=== PATIENT | female | born 1985 | race Caucasian/White ===

== ENCOUNTER 2016-11-30 10:40 | Emergency (ER) | payer BC ==
[~2016-11-30 10:40] MED LIST: CLIN300C86 PO; HYDR-971 PO; MULT1TAB52 PO; ONDA4TAB12 PO; PANT40TA3 PO; SERT100T PO; SUCR1TAB29 PO; VALA1000 PO
--- NOTE | 2016-11-30 12:03 | ED.ADGEN ---
Past History Past Medical History: Other Past Surgical History: No Surgical History Smoking: Cigarettes, Less than 1pk/day Alcohol Use: Occasionally Drug Use: None Adult General Chief Complaint Chief Complaint nausea, vomiting, diarrhea HPI HPI Patient is a 30 year old female who presents with nausea, vomiting, diarrhea. Started at 6am, chills, no known fevers. Reports diffuse abdominal pain. Pt has had similar complaints in the past. Pt has be instructed to avoid MJ as thought to induce her symptoms. She admits she did smoke it again, not today. 2 prior abdominal surgeries for obstruction. ++ diarrhea and flatus today. She attempted Reglan at home. Review of Systems Review of Systems Constitutional: per hpi Eyes: Denies change in visual acuity, redness, or eye pain [] HENT: Denies nasal congestion or sore throat [] Respiratory: Denies cough or shortness of breath [] Cardiovascular: denies cp GI: Dper hpi : Denies dysuria or hematuria [] Musculoskeletal: Denies back pain or joint pain [] Integument: Denies rash or skin lesions [] Neurologic: Denies headache, focal weakness or sensory changes [] Current Medications Current Medications Current Medications Medications (Trade) Dose Ordered Sig/Jaycee Start Time Stop Time Status Last Admin Dose Admin Capsaicin (Zostrix) 1 ace 1X ONCE 11/30/16 12:30 11/30/16 12:31 DC 11/30/16 12:10 1 ACE Haloperidol Lactate (Haldol) 5 mg 1X ONCE 11/30/16 12:30 11/30/16 12:31 DC 11/30/16 12:10 5 MG Ketorolac Tromethamine (Toradol) 30 mg 1X ONCE 11/30/16 13:30 11/30/16 13:31 DC 11/30/16 13:57 30 MG Ondansetron HCl (Zofran) 4 mg 1X ONCE 11/30/16 12:10 11/30/16 12:11 DC 11/30/16 12:10 4 MG Sodium Chloride (Iv Sodium Chloride 0.9% 1,000ml) 1,000 ml @ 1,000 mls/hr 1X ONCE 11/30/16 12:10 11/30/16 13:09 DC 11/30/16 12:10 1,000 MLS/HR Allergies Allergies Allergies Coded Allergies Type Severity Reaction Last Updated Verified tea tree Allergy Severe Rash 07/17/16 Yes ethinyl estradiol Adverse Reaction Intermediate Swelling 03/26/14 Yes etonogestrel Adverse Reaction Intermediate Swelling 03/26/14 Yes Physical Exam Physical Exam Constitutional: Well developed, well nourished, dry heaving into bucket HENT: Normocephalic, atraumatic, bilateral external ears normal, oropharynx slightly dry, no oral exudates, nose normal. [] Eyes: PERRLA, EOMI, conjunctiva normal, no discharge. [] Neck: Normal range of motion, no tenderness, supple, no stridor. [] Cardiovascular:Heart rateregualr with regular rhythm, no murmur [] Lungs & Thorax: Bilateral breath sounds clear to auscultation no wheeze or crackles Abdomen: Bowel sounds normal, soft, non distended, diffuse non-focal ttp, no guarding or peritoneal signs Skin: Warm, dry, no erythema, no rash. [] Back: No tenderness, no CVA tenderness. [] Extremities: No tenderness, no cyanosis, no clubbing, ROM intact, no edema. [] Neurologic: Alert and oriented X 3, normal motor function, normal sensory function, no focal deficits noted. [] Current Patient Data Vital Signs Vital Signs Date Time Temp Pulse Resp B/P Pulse Ox O2 Delivery O2 Flow Rate FiO2 11/30/16 11:30 97.4 52 16 100 Room Air Lab Results Laboratory Tests Test 11/30/16 11:59 11/30/16 12:55 11/30/16 13:39 11/30/16 13:40 POC Hemoglobin 15.0gm/dL POC Hematocrit 44% POC Sodium 141mmol/L (135-145) POC Potassium 5.6mmol/L (3.5-5.0) H POC Chloride 109mmol/L (98-110) POC Total CO2 23mmol/L (23-32) Anion Gap 16mmol/L (6-14) H 9 (6-14) POC Blood Urea Nitrogen 12mg/dL (8-26) POC Creatinine 0.5mg/dL (0.5-1.4) Glucose Level 149mg/dL (60-99) H 137mg/dL (70-99) H POC Ionized Calcium (Elizabeth) 1.10mmol/L (1.13-1.32) L White Blood Count 11.9x10^3/uL (4.0-11.0) H Red Blood Count 4.45x10^6/uL (3.50-5.40) Hemoglobin 14.3g/dL (12.0-15.5) Hematocrit 42.5% (36.0-47.0) Mean Corpuscular Volume 96fL (79-100) Mean Corpuscular Hemoglobin 32pg (25-35) Mean Corpuscular Hemoglobin Concent 34g/dL (31-37) Red Cell Distribution Width 13.9% (11.5-14.5) Platelet Count 195x10^3/uL (140-400) Neutrophils (%) (Auto) 89% (31-73) H Lymphocytes (%) (Auto) 8% (24-48) L Monocytes (%) (Auto) 3% (0-9) Eosinophils (%) (Auto) 0% (0-3) Basophils (%) (Auto) 0% (0-3) Neutrophils # (Auto) 10.6x10^3uL (1.8-7.7) H Lymphocytes # (Auto) 1.0x10^3/uL (1.0-4.8) Monocytes # (Auto) 0.3x10^3/uL (0.0-1.1) Eosinophils # (Auto) 0.0x10^3/uL (0.0-0.7) Basophils # (Auto) 0.0x10^3/uL (0.0-0.2) Sodium Level 142mmol/L (136-145) Potassium Level 3.7mmol/L (3.5-5.1) Chloride Level 108mmol/L (98-107) H Carbon Dioxide Level 25mmol/L (21-32) Blood Urea Nitrogen 9mg/dL (7-20) Creatinine 0.8mg/dL (0.6-1.0) Estimated GFR (Cockcroft-Gault) 83.7 Calcium Level 8.5mg/dL (8.5-10.1) POC Urine HCG, Qualitative hcg negative (Negative) Urine Collection Type Void Urine Color Yellow Urine Clarity Clear Urine pH 7.0 Urine Specific Rowe 1.025 Urine Protein Neg (NEG-TRACE) Urine Glucose (UA) Negmg/dL (NEG) Urine Ketones (Stick) Negmg/dL (NEG) Urine Blood Small (NEG) Urine Nitrite Neg (NEG) Urine Bilirubin Neg (NEG) Urine Urobilinogen Dipstick 0.2mg/dL (0.2 mg/dL) Urine Leukocyte Esterase Neg (NEG) EKG EKG [] Radiology/Procedures Radiology/Procedures [] Course & Med Decision Making Course & Med Decision Making Pertinent Labs and Imaging studies reviewed. (See chart for details) POC bmp ordered. UA, ucg. Pt given IV fluids, zofran, haldol and capsaicin cream for abdomen. UCG negative, pt given IV toradol. No active vomiting in ED. Pt did not feel much better, but no clear indication to keep in hospital as no vomiting. Tolerate some fluids in the ED. DC'd with zofran odt RX, explained to avoid MJ. Final Impression Final Impression cyclic vomiting - possible marijuana induced Problems: Dragon Disclaimer Dragon Disclaimer This electronic medical record was generated, in whole or in part, using a voice recognition dictation system. YULY HERMOSILLO MD Nov 30, 2016 12:03
[2016-11-30] MEDS ORDERED: ONDANSETRON PF 4 MG/2 ML VIAL. IV ONE (12:10)
[2016-11-30] MEDS ORDERED: IV NORMAL SALINE 1,000ML 1,000 ML IV ONE (12:10)
[2016-11-30 12:16] LABS: POTASSIUM ISTAT 5.6 mmol/L (3.5-5.0)
[2016-11-30] MEDS ORDERED: CAPSAICIN 0.025% TOPICAL CREAM 60GM TUBE. TP ONE (12:30)
[2016-11-30] MEDS ORDERED: HALOPERIDOL LACT 5 MG/ML VIAL. IVP ONE (12:30)
[2016-11-30 13:14] LABS: BASO % 0 % (0-3); EOS % 0 % (0-3); HEMATOCRIT 42.5 % (36.0-47.0); HEMOGLOBIN 14.3 g/dL (12.0-15.5); LYMPH % 8 % (24-48); MEAN CORPUSCULAR HEMOGLOBIN 32 pg (25-35); MEAN CORPUSCULAR HGB CONC 34 g/dL (31-37); MEAN CORPUSCULAR VOLUME 96 fL (79-100); MONO # 0.3 x10^3/uL (0.0-1.1); MONO % 3 % (0-9); NEUT # 10.6 x10^3uL (1.8-7.7); NEUT % 89 % (31-73); PLATELET COUNT 195 x10^3/uL (140-400); RED BLOOD COUNT 4.45 x10^6/uL (3.50-5.40); RED CELL DISTRIBUTION WIDTH 13.9 % (11.5-14.5); WHITE BLOOD COUNT 11.9 x10^3/uL (4.0-11.0)
[2016-11-30 13:20] LABS: CALCIUM 8.5 mg/dL (8.5-10.1); CREATININE 0.8 mg/dL (0.6-1.0); GFR 83.7; POTASSIUM 3.7 mmol/L (3.5-5.1)
[2016-11-30] MEDS ORDERED: KETOROLAC 30 MG/ML VIAL. IV ONE (13:30)
[2016-11-30 13:45] VITALS: BP 168/82
[2016-11-30 13:58] LABS: BILIRUBIN,URINE NEG (NEG); CLARITY,URINE CLEAR; COLOR,URINE YELLOW; GLUCOSE,URINE NEG (NEG)
[2016-11-30] MEDS ORDERED: ONDA4TAB10 SL (13:58)
[2016-11-30 13:59] LABS: NITRITE,URINE NEG (NEG); UROBILINOGEN,URINE 0.2 mg/dL (0.2 mg/dL)
== END 2016-11-30 14:10 | disposition home or self-care (01) ==
LOC: ER 10:40
DX: G43.A0 Cyclical vomiting, in migraine, not intractable (principal); R19.7 Diarrhea, unspecified; R10.84 Generalized abdominal pain; F17.210 Nicotine dependence, cigarettes, uncomplicated; Z88.8 Allergy status to other drugs, medicaments and biological substances
CPT/HCPCS: 36415; 80047; 80048; 81003; 81025; 85027; 96361; 96374; 96375; 99284; J1630; J1885; J2405; J7030

== ENCOUNTER 2017-12-08 04:38 | Inpatient (IN) | payer SELFPAY ==
[~2017-12-08] VITALS: Ht 157.5 cm; Wt 82.7 kg
[~2017-12-08 04:38] MED LIST changes: +CLIN300C8 PO; -CLIN300C86 PO; +ONDA4TAB10 SL; -SUCR1TAB29 PO; +SUCR1TAB35 PO
[2017-12-08] MEDS ORDERED: LORazepam 2 MG/ML VIAL IV ONE (05:45)
[2017-12-08] MEDS ORDERED: ONDANSETRON PF 4 MG/2 ML VIAL. IV ONE (05:45)
[2017-12-08] MEDS ORDERED: KETOROLAC 30 MG/ML VIAL. IV ONE ×2 (05:45→08:00)
--- NOTE | 2017-12-08 05:47 | PHYS DOC ---
Past History Past Medical History: No Pertinent History Past Surgical History: Appendectomy, Other Smoking: Cigarettes, Less than 1pk/day Alcohol Use: None Drug Use: None Adult General Chief Complaint Chief Complaint: NAUSEA/VOMITING/DIARRHEA HPI HPI 32-year-old female with a history of cyclic vomiting syndrome last episode about a year ago. She now presents the emergency department complaining of symptoms of nausea and intractable vomiting over the last several days. These are similar to symptoms she's had before Denies fevers chills sweats or shaking chills. Patient has had normal bowel bladder habits with no diarrhea. Does have some crampy abdominal pain. She also has a history of anxiety but states she does not take anxiety medicines. Patient denies marijuana use. Review of Systems Review of Systems Constitutional: Denies fever or chills [] Eyes: Denies change in visual acuity, redness, or eye pain [] HENT: Denies nasal congestion or sore throat [] Respiratory: Denies cough or shortness of breath [] Cardiovascular: No additional information not addressed in HPI [] GI: Denies abdominal pain, nausea, vomiting, bloody stools or diarrhea [] : Denies dysuria or hematuria [] Musculoskeletal: Denies back pain or joint pain [] Integument: Denies rash or skin lesions [] Neurologic: Denies headache, focal weakness or sensory changes [] Endocrine: Denies polyuria or polydipsia [] All other systems were reviewed and found to be within normal limits, except as documented in this note. Current Medications Current Medications Current Medications Medications (Trade) Dose Ordered Sig/Jaycee Start Time Stop Time Status Last Admin Dose Admin Ondansetron HCl (Zofran) 4 mg 1X ONCE 12/08/17 05:00 12/08/17 05:01 UNV Sodium Chloride 1,000 ml @ 1,000 mls/hr Q1H 12/08/17 05:00 UNV Allergies Allergies Allergies Coded Allergies Type Severity Reaction Last Updated Verified tea tree Allergy Severe Rash 07/17/16 Yes ethinyl estradiol Adverse Reaction Intermediate Swelling 03/26/14 Yes etonogestrel Adverse Reaction Intermediate Swelling 03/26/14 Yes Physical Exam Physical Exam Anxious appearing 32-year-old female in no acute distress. Mucous membranes mildly dry. No tachycardia. Mild diffuse upper abdominal tenderness without guarding or rebound. No mass or megaly. Normal bowel sounds. No skin changes. No CVA tenderness. Nontender right upper quadrant and McBurney's point. No suprapubic tenderness Constitutional: Well developed, well nourished, no acute distress, non-toxic appearance. [] HENT: Normocephalic, atraumatic, bilateral external ears normal, oropharynx moist, no oral exudates, nose normal. [] Eyes: PERRLA, EOMI, conjunctiva normal, no discharge. [] Neck: Normal range of motion, no tenderness, supple, no stridor. [] Cardiovascular:Heart rate regular rhythm, no murmur [] Lungs & Thorax: Bilateral breath sounds clear to auscultation [] Abdomen: Bowel sounds normal, soft, no masses, no pulsatile masses. Exam as above [] Skin: Warm, dry, no erythema, no rash. [] Back: No tenderness, no CVA tenderness. [] Extremities: No tenderness, no cyanosis, no clubbing, ROM intact, no edema. [] Neurologic: Alert and oriented X 3, normal motor function, normal sensory function, no focal deficits noted. [] Psychologic: Affect anxious judgement normal Current Patient Data Vital Signs Vital Signs Date Time Temp Pulse Resp B/P (MAP) Pulse Ox O2 Delivery O2 Flow Rate FiO2 12/08/17 04:53 98.2 62 20 96 Room Air EKG EKG [] Radiology/Procedures Radiology/Procedures [] Course & Med Decision Making Course & Med Decision Making Pertinent Labs and Imaging studies reviewed. (See chart for details) Signs and symptoms consistent with suspected episode of cyclic vomiting syndrome in a patient with a prior history thereof. She has a clearly contributory anxiety component. diffuse upper abdominal pain and tenderness. Full workup pending including labs and CT. Zofran IV fluids and Ativan administered. Care assumed by Dr. Keita at 6 AM to follow laboratory and radiographic results/correlate with clinical reevaluation for disposition. [] Dragon Disclaimer Dragon Disclaimer This electronic medical record was generated, in whole or in part, using a voice recognition dictation system. Departure Departure: Impression: Primary Impression: Cyclic vomiting syndrome Additional Impressions: Anxiety Abdominal pain Referrals: PCP,NO (PCP) Problem Qualifiers ARIANA VILLALOBOS MD December 08, 2017 05:47
[2017-12-08] MEDS: IV NORMAL SALINE 1,000ML 1,000 ML IV SCH ×6 (05:48→09:45)
[2017-12-08] MEDS ORDERED: CONTRAST GIVEN MC PRN (06:00)
[2017-12-08] MEDS ORDERED: IOHEXOL 300 MG/ML 75 ML VIAL. IV ONE (06:00)
[2017-12-08 06:08] LABS: BASO # 0.1 x10^3/uL (0.0-0.2); BASO % 0 % (0-3); EOS % 0 % (0-3); HEMATOCRIT 46.5 % (36.0-47.0); HEMOGLOBIN 16.2 g/dL (12.0-15.5); LYMPH % 11 % (24-48); MEAN CORPUSCULAR HEMOGLOBIN 32 pg (25-35); MEAN CORPUSCULAR HGB CONC 35 g/dL (31-37); MEAN CORPUSCULAR VOLUME 92 fL (79-100); MONO % 5 % (0-9); NEUT # 15.9 x10^3uL (1.8-7.7); NEUT % 84 % (31-73); PLATELET COUNT 227 x10^3/uL (140-400); RED BLOOD COUNT 5.05 x10^6/uL (3.50-5.40); RED CELL DISTRIBUTION WIDTH 13.1 % (11.5-14.5)
[2017-12-08 06:21] LABS: ALBUMIN 4.2 g/dL (3.4-5.0); ALBUMIN/GLOBULIN RATIO 1.2 (1.0-1.7); CALCIUM 9.3 mg/dL (8.5-10.1); CREATININE 0.8 mg/dL (0.6-1.0); GFR 82.6; TOTAL BILIRUBIN 0.5 mg/dL (0.2-1.0); TOTAL PROTEIN 7.8 g/dL (6.4-8.2)
[2017-12-08 06:23] LABS: POTASSIUM 2.8 mmol/L (3.5-5.1)
--- NOTE | 2017-12-08 06:41 | PHYS DOC ---
Past History Past Medical History: No Pertinent History Past Surgical History: Appendectomy, Other Smoking: Cigarettes, Less than 1pk/day Alcohol Use: None Drug Use: None Adult General Chief Complaint Chief Complaint: NAUSEA/VOMITING/DIARRHEA HPI HPI 32-year-old female patient complaining of very frequent episodes of vomiting for the last 4 days with some episodes of coffee ground material for the last couple days. Patient states she had the same episode one year ago. Patient was seen by Dr. Diaz and her care transferred to [place] at [address] Diaz note for more history of present illness. Review of Systems Review of Systems Please see Dr. Diaz note for review of systems Current Medications Current Medications Current Medications Medications (Trade) Dose Ordered Sig/Jaycee Start Time Stop Time Status Last Admin Dose Admin Info (Do NOT chart on this entry -- for MONITORING) 1 each PRN DAILY PRN 12/08/17 06:00 12/10/17 05:59 Iohexol (Omnipaque 300 Mg/ml) 75 ml 1X ONCE 12/08/17 06:00 12/08/17 06:01 DC Ketorolac Tromethamine (Toradol) 30 mg 1X ONCE 12/08/17 05:45 12/08/17 05:47 DC 12/08/17 05:50 30 MG Lorazepam (Ativan) 1 mg 1X ONCE 12/08/17 05:45 12/08/17 05:47 DC 12/08/17 05:49 1 MG Ondansetron HCl (Zofran) 4 mg 1X ONCE 12/08/17 05:45 12/08/17 05:47 DC 12/08/17 05:49 4 MG Sodium Chloride 1,000 ml @ 1,000 mls/hr Q1H 12/08/17 05:45 12/08/17 05:48 1,000 MLS/HR Allergies Allergies Allergies Coded Allergies Type Severity Reaction Last Updated Verified tea tree Allergy Severe Rash 07/17/16 Yes ethinyl estradiol Adverse Reaction Intermediate Swelling 03/26/14 Yes etonogestrel Adverse Reaction Intermediate Swelling 03/26/14 Yes Physical Exam Physical Exam Constitutional: Well developed, well nourished, mild distress, non-toxic appearance, I saw patient after treatment with IV fluid and Zofran and Ativan and patient states she feeling better. [] HENT: Normocephalic, atraumatic, oropharynx moist, no oral exudates Eyes: PERRLA, EOMI, conjunctiva normal, no discharge. [] Neck: Normal range of motion, no tenderness, supple, no stridor. [] Cardiovascular:Heart rate regular rhythm, no murmur [] Lungs & Thorax: Bilateral breath sounds clear to auscultation [] Abdomen: Bowel sounds normal, soft, no tenderness, no masses, no pulsatile masses. [] Skin: Warm, dry, no erythema, no rash. [] Back: No tenderness, no CVA tenderness. [] Extremities: No tenderness, no cyanosis, no clubbing, ROM intact, no edema. [] Neurologic: Alert and oriented X 3, normal motor function, normal sensory function, no focal deficits noted. [] Psychologic: Affect normal, judgement normal, mood normal. [] Current Patient Data Vital Signs Vital Signs Date Time Temp Pulse Resp B/P (MAP) Pulse Ox O2 Delivery O2 Flow Rate FiO2 12/08/17 04:53 98.2 62 20 96 Room Air Lab Results Laboratory Tests Test 12/08/17 05:35 White Blood Count 19.0 x10^3/uL (4.0-11.0) H Red Blood Count 5.05 x10^6/uL (3.50-5.40) Hemoglobin 16.2 g/dL (12.0-15.5) H Hematocrit 46.5 % (36.0-47.0) Mean Corpuscular Volume 92 fL (79-100) Mean Corpuscular Hemoglobin 32 pg (25-35) Mean Corpuscular Hemoglobin Concent 35 g/dL (31-37) Red Cell Distribution Width 13.1 % (11.5-14.5) Platelet Count 227 x10^3/uL (140-400) Neutrophils (%) (Auto) 84 % (31-73) H Lymphocytes (%) (Auto) 11 % (24-48) L Monocytes (%) (Auto) 5 % (0-9) Eosinophils (%) (Auto) 0 % (0-3) Basophils (%) (Auto) 0 % (0-3) Neutrophils # (Auto) 15.9 x10^3uL (1.8-7.7) H Lymphocytes # (Auto) 2.0 x10^3/uL (1.0-4.8) Monocytes # (Auto) 1.0 x10^3/uL (0.0-1.1) Eosinophils # (Auto) 0.0 x10^3/uL (0.0-0.7) Basophils # (Auto) 0.1 x10^3/uL (0.0-0.2) Platelet Estimate Pending Sodium Level 139 mmol/L (136-145) Potassium Level 2.8 mmol/L (3.5-5.1) *L Chloride Level 97 mmol/L (98-107) L Carbon Dioxide Level 33 mmol/L (21-32) H Anion Gap 9 (6-14) Blood Urea Nitrogen 13 mg/dL (7-20) Creatinine 0.8 mg/dL (0.6-1.0) Estimated GFR (Cockcroft-Gault) 82.6 BUN/Creatinine Ratio 16 (6-20) Glucose Level 117 mg/dL (70-99) H Calcium Level 9.3 mg/dL (8.5-10.1) Total Bilirubin 0.5 mg/dL (0.2-1.0) Aspartate Amino Transferase (AST) 21 U/L (15-37) Alanine Aminotransferase (ALT) 31 U/L (14-59) Alkaline Phosphatase 91 U/L (46-116) Total Protein 7.8 g/dL (6.4-8.2) Albumin 4.2 g/dL (3.4-5.0) Albumin/Globulin Ratio 1.2 (1.0-1.7) Lipase 78 U/L (73-393) EKG EKG [] Radiology/Procedures Radiology/Procedures [] [address] [address] IMAGING REPORT Signed PATIENT: JESSE HULL ACCOUNT: [id number] : 1985 LOCATION: ER AGE: 32 SEX: F EXAM STATUS: REG ER ORD. PHYSICIAN: ARIANA DIAZ MD REASON: pain PROCEDURE: CT ABD PELV W/ IV CONTRST ONLY Exam performed: CT scan of the abdomen and pelvis with contrast Clinical Indication: Umbilical pain with nausea and vomiting and diarrhea Date of Service: 12/08/2017 comparison: None available Technique: Contiguous helical acquisitions are obtained from the lung bases to the pelvis during intravenous administration of [75 mL of Omnipaque 300]. Sagittal and coronal reformatted images were obtained and reviewed. CT abdomen findings: The lung bases appear essentially clear. The visualized heart is normal The liver, spleen ,gall bladder and pancreas appears unremarkable. Both adrenal glands and bilateral kidneys appear normal with symmetric excretion of contrast via both kidneys. The small bowel loops appear nondilated and unremarkable. Aorta is normal in caliber. There is no retroperitoneal lymphadenopathy or mass lesions. No bowel related inflammatory stranding is noted. Appendix is not clearly seen. No obvious stranding is seen in the pericecal region. Occasional subcentimeter mesenteric lymph nodes are identified predominantly in the right lower quadrant. The urinary bladder is decompressed. The uterus is anteverted. No adnexal masses seen. Interrogation of bone windows demonstrates no obvious bony abnormality. Sagittal and coronal reformatted images were obtained and reviewed which demonstrate no additional findings. Impression abdomen and pelvis : 1. No acute intra-abdominal or pelvic process is detected. 2. Appendix is not clearly seen. No secondary sign of acute appendicitis noted PQRS Compliance Statement: One or more of the following individualized dose reduction techniques were utilized for this examination: 1. Automated exposure control 2. Adjustment of the mA and/or kV according to patient size 3. Use of iterative reconstruction technique Electronically signed by: Izzy Lawrence MD (12/08/2017 7:28 AM) [facility] [place] DICTATED AND SIGNED BY: IZZY LAWRENCE MD DATE: 12/08/17 0720 CC: WAQAS JC MD; ARIANA DIAZ MD; PCP,NO ~ Course & Med Decision Making Course & Med Decision Making Pertinent Labs and Imaging studies reviewed. (See chart for details) Patient care transferred to [place] at [address] Diaz. Patient presented to ER with multiple episodes of nausea and vomiting and treated with IV fluid and Zofran and at the time I saw her she felt better. Patient had leukocytosis with unremarkable CT abdomen and pelvis. Patient currently is on her period and urine showed blood. Potassium of 2.8 and IV potassium was ordered. Patient had coffee-ground material vomiting with positive gastrocolic and Protonix was given. Dr. Brooks informed at 0635 and agreed with plan of admission. Dragon Disclaimer Dragon Disclaimer This electronic medical record was generated, in whole or in part, using a voice recognition dictation system. Departure Departure: Impression: Primary Impression: Cyclic vomiting syndrome Additional Impressions: Hypokalemia Anxiety Leukocytosis Abdominal pain Upper GI bleed Disposition: ADMITTED INPATIENT (At 0640) Admitting Physician: David Brooks Condition: IMPROVED Referrals: PCP,NO (PCP) Problem Qualifiers WAQAS JC MD December 08, 2017 06:41
[2017-12-08] MEDS ORDERED: PANTOPRAZOLE IV 40 MG VIAL. IVP ONE (06:45)
[2017-12-08] MEDS ORDERED: POTASSIUM CL 40MEQ IN 0.9%NACL 1,000 ML IV ONE (06:45)
[2017-12-08 06:48] LABS: U PREG PATIENT NEGATIVE (NEG)
[2017-12-08 06:54] LABS: GASTRIC OB PAT POSITIVE (NEG)
[2017-12-08 07:06] LABS: BACTERIA,URINE MOD /HPF (0-FEW); BILIRUBIN,URINE NEG (NEG); CLARITY,URINE TURBID; COLOR,URINE AMBER; GLUCOSE,URINE NEG (NEG); NITRITE,URINE NEG (NEG); RBC,URINE >40 /HPF (0-2); SQUAMOUS EPITHELIAL CELL,UR MANY /LPF; UROBILINOGEN,URINE 2 mg/dL (0.2 mg/dL)
[2017-12-08 07:20] LABS: % BANDS 1 % (0-9); % BASOS 1 % (0-3); % EOS 0 % (0-5); % LYMPHS 14 % (24-48); % MONOS 6 % (0-10); % SEGS 78 % (35-66); PLT ESTIMATE ADEQUATE (ADEQUATE)
[2017-12-08 07:21] LABS: TOXIC VACUOLATION PRESENT
--- NOTE | 2017-12-08 07:33 | RAD ---
Exam performed: CT scan of the abdomen and pelvis with contrast Clinical Indication: Umbilical pain with nausea and vomiting and diarrhea Date of Service: 12/08/2017 comparison: None available Technique: Contiguous helical acquisitions are obtained from the lung bases to the pelvis during intravenous administration of [75 mL of Omnipaque 300]. Sagittal and coronal reformatted images were obtained and reviewed. CT abdomen findings: The lung bases appear essentially clear. The visualized heart is normal The liver, spleen ,gall bladder and pancreas appears unremarkable. Both adrenal glands and bilateral kidneys appear normal with symmetric excretion of contrast via both kidneys. The small bowel loops appear nondilated and unremarkable. Aorta is normal in caliber. There is no retroperitoneal lymphadenopathy or mass lesions. No bowel related inflammatory stranding is noted. Appendix is not clearly seen. No obvious stranding is seen in the pericecal region. Occasional subcentimeter mesenteric lymph nodes are identified predominantly in the right lower quadrant. The urinary bladder is decompressed. The uterus is anteverted. No adnexal masses seen. Interrogation of bone windows demonstrates no obvious bony abnormality. Sagittal and coronal reformatted images were obtained and reviewed which demonstrate no additional findings. Impression abdomen and pelvis : 1. No acute intra-abdominal or pelvic process is detected. 2. Appendix is not clearly seen. No secondary sign of acute appendicitis noted PQRS Compliance Statement: One or more of the following individualized dose reduction techniques were utilized for this examination: 1. Automated exposure control 2. Adjustment of the mA and/or kV according to patient size 3. Use of iterative reconstruction technique Electronically signed by: Izzy Lawrence MD (12/08/2017 7:28 AM) [facility]
[2017-12-08] MEDS: ONDANSETRON PF 4 MG/2 ML VIAL. IV PRN ×3 (07:42→20:35)
[2017-12-08] MEDS ORDERED: MORPHINE SULFATE 4 MG/ML DISP.SYRIN. IV ONE (08:00)
[2017-12-08 09:40] VITALS: BP 109/68
[2017-12-08] MEDS ORDERED: PROMETHAZINE 12.5 MG in IV NORMAL SALINE 50ML 50 ML IV PRN (10:00)
[2017-12-08 10:15] LABS: BARBITURATES NEG (NEG); BENZODIAZEPINES NEG (NEG); CANNABINOIDS POS (NEG); COCAINE NEG (NEG); METHADONE NEG (NEG); OPIATES NEG (NEG); PHENCYCLIDINE NEG (NEG)
[2017-12-08 10:17] LABS: AMPHETAMINE/METHAMPHETAMINE NEG (NEG)
[2017-12-08] MEDS: MORPHINE SULFATE 4 MG/ML DISP.SYRIN. IV PRN ×3 (10:36→20:36)
[2017-12-08] MEDS ORDERED: PROM12.553 RC (11:49)
[2017-12-08] MEDS ORDERED: ONDA8TAB15 PO (11:49)
[2017-12-08] MEDS ORDERED: MULT-55 PO (11:49)
[2017-12-08] MEDS ORDERED: FAMO-63 PO (11:49)
[2017-12-08] MEDS ORDERED: SUCR1TAB35 PO (11:49)
[2017-12-08 14:47] LABS: CALCIUM 8.1 mg/dL (8.5-10.1); CREATININE 0.9 mg/dL (0.6-1.0); GFR 72.1
[2017-12-08 15:00] VITALS: BP 112/72
[2017-12-08] MEDS: POTASSIUM CL 40MEQ IN 0.9%NACL 1,000 ML IV SCH (17:34)
--- NOTE | 2017-12-08 18:18 | HP ---
ADMIT DATE: 12/08/2017 HISTORY OF PRESENT ILLNESS: The patient is a 32-year-old female patient who presented to the Emergency Room with a complaint of recurrent bouts of nausea and vomiting, started last Tuesday. She also complained with a complaint of 1 episode of diarrhea and marked sweating and severe epigastric pain. She apparently was admitted last year with similar presentation, attributed at that time to marijuana abuse. She was investigated extensively in the Emergency Room, was found to have marked leukocytosis and severe hypokalemia. Her potassium was only 2.8 and her white cell count was high at 19,000. Her hemoglobin and hematocrit were extremely high; however, her CT scan of the abdomen and pelvis showed no acute intra-abdominal or pelvic process detected. The appendix is not clearly seen. No secondary signs of acute appendicitis, but the patient herself said that she has had appendectomy. She was started on IV fluids with the form of normal saline at 40 mEq of potassium chloride and pain medication and antiemetic was admitted for close observation and further management. PAST MEDICAL HISTORY: Significant for gastroesophageal reflux disease, anxiety, depression and bronchial asthma. PAST SURGICAL HISTORY: Significant for a cyst removal from her intestine. She also had another exploratory laparotomy with adhesiolysis in 2010. She has had esophagogastroduodenoscopy and appendectomy in 2005. ALLERGIES: SHE APPARENTLY IS ALLERGIC TO NUVARING WELL TEA TREE OIL. MEDICATIONS: She is not normally on Prilosec. She has also promethazine and Zofran as needed. FAMILY HISTORY: She has 1 older brother and one younger sister, both are healthy. Her sister lives with her; however, her father at the age of 45 because of congestive heart failure. Mother at the age of 40 because she committed suicide. SOCIAL HISTORY: She is , has one 9-year-old daughter. She smokes occasionally and drinks alcohol occasionally as well as marijuana occasionally. She is currently unemployed. She is actually currently working. REVIEW OF SYSTEMS: As per history of present illness. PHYSICAL EXAMINATION: GENERAL: On arrival to the Emergency Room, the patient looked well and was clearly in no apparent respiratory distress, no pallor, jaundice, cyanosis, or thyromegaly. No jugular venous distension. No limb edema. VITAL SIGNS: Her heart rate was 62, blood pressure was 112/62, temperature was 98.2, respiratory rate was 20, and oxygen saturation was 96% on room air. HEENT: Showed normocephalic, atraumatic. NECK: Supple. HEART: Showed normal first and second heart sounds with no gallop, rub or murmur. CHEST: Clear to auscultation. No crepitation or rhonchi. ABDOMEN: Slightly distended, soft with tenderness, mostly in the epigastric area. There is no guarding or rigidity. No organomegaly. All hernial orifices intact. Bowel sounds normal. NEUROLOGIC: She is awake, alert, responding appropriately. Cranial nerves intact. EXTREMITIES: She moves extremities without difficulty. LABORATORY DATA: While in the Emergency Room, she had lab work done, which showed a white cell count of 19,000, hemoglobin 16.2, hematocrit 46.5, MCV 92, and platelet count 227,000. Her serum sodium was 139, potassium 2.8, chloride 97, bicarbonate 33, anion gap of 9, BUN 13, creatinine 0.8, estimated GFR was 182 mL per minute. Her glucose 117, calcium was 9.3. Total bilirubin, AST, ALT, alkaline phosphatase were normal. Total protein was 7.8, albumin 4.1 and lipase was 78. Her urinalysis showed the urine was alvaro, turbid with a pH of 7.5, specific gravity 1.020. There is moderate amount of protein, negative for glucose, trace amount of ketones, large amount of blood, negative for nitrite and leukocyte esterase. There were more than 40 rbc's, 1-4 wbc's, moderate amount of bacteria. Her urine test was negative. Toxic screen was positive for cannabinoids, negative for opiates, methadone, barbiturates, phencyclidine, amphetamine, methamphetamine, benzodiazepine, cocaine and alcohol. She has had a CT scan of the abdomen and pelvis, which showed the liver, spleen, gallbladder and pancreas appear unremarkable. Both adrenal glands and bilateral kidneys appear normal with ____ of contrast via both kidneys, the small bowel loops appear nondilated and unremarkable. The aorta is normal in caliber. There is no retroperitoneal lymphadenopathy or mass lesion. No bowel related inflammatory stranding is noted. Appendix not clearly seen. No obvious stranding seen in the pericalyceal region, occasionally subcentimeter mesenteric lymph nodes are identified, predominantly in the right lower quadrant. The urinary bladder is decompressed and the uterus is anteverted. No adnexal masses seen. Interrogation of bone windows demonstrate no obvious bony abnormalities. Sagittal and coronal reformatted images were obtained and reviewed, which demonstrates no additional finding. ASSESSMENT AND PLAN: In summary, there is no acute intra-abdominal or pelvic process identified. Appendix not clearly seen. However, the patient herself stated that her appendix was removed. So in summary, this is a 32-year-old female patient again came in with intractable nausea and vomiting and basically marked dehydration, hyponatremia, hypokalemia. We will continue with IV fluid, pain medication, we will replenish potassium and use antiemetics and repeat her labs as needed. JULIETA LOZANO MD DR: YULISSA/etta JOB#: [id number] / [id number]
[2017-12-08 19:51] VITALS: BP 119/74
[2017-12-08 23:09] VITALS: BP 104/59
[2017-12-09] MEDS: POTASSIUM CL 40MEQ IN 0.9%NACL 1,000 ML IV SCH ×3 (01:16→20:37)
[2017-12-09] MEDS: MORPHINE SULFATE 4 MG/ML DISP.SYRIN. IV PRN ×4 (03:37→22:12)
[2017-12-09] MEDS: ONDANSETRON PF 4 MG/2 ML VIAL. IV PRN ×4 (03:37→22:12)
[2017-12-09 05:54] VITALS: BP 106/61
[2017-12-09 06:44] LABS: BASO % 0 % (0-3); EOS # 0.1 x10^3/uL (0.0-0.7); EOS % 1 % (0-3); HEMATOCRIT 36.1 % (36.0-47.0); HEMOGLOBIN 12.6 g/dL (12.0-15.5); LYMPH # 3.7 x10^3/uL (1.0-4.8); LYMPH % 44 % (24-48); MEAN CORPUSCULAR HEMOGLOBIN 32 pg (25-35); MEAN CORPUSCULAR HGB CONC 35 g/dL (31-37); MEAN CORPUSCULAR VOLUME 92 fL (79-100); MONO # 0.7 x10^3/uL (0.0-1.1); MONO % 8 % (0-9); NEUT # 3.9 x10^3uL (1.8-7.7); NEUT % 47 % (31-73); PLATELET COUNT 156 x10^3/uL (140-400); RED BLOOD COUNT 3.91 x10^6/uL (3.50-5.40); RED CELL DISTRIBUTION WIDTH 13.5 % (11.5-14.5); WHITE BLOOD COUNT 8.4 x10^3/uL (4.0-11.0)
[2017-12-09 06:57] LABS: ALBUMIN 2.8 g/dL (3.4-5.0); CALCIUM 7.3 mg/dL (8.5-10.1); CREATININE 0.7 mg/dL (0.6-1.0); GFR 96.4; MAGNESIUM 2.1 mg/dL (1.8-2.4); POTASSIUM 3.8 mmol/L (3.5-5.1); TOTAL BILIRUBIN 0.4 mg/dL (0.2-1.0); TOTAL PROTEIN 5.7 g/dL (6.4-8.2)
[2017-12-09] MEDS ORDERED: PNEUMOC CONJ VACC 23-VALENT 0.5 ML VIAL. VAX IM ONE (09:00)
[2017-12-09 10:50] VITALS: BP 121/78
[2017-12-09 14:44] VITALS: BP 130/83
[2017-12-09 19:54] VITALS: BP 129/83
[2017-12-09 23:00] VITALS: BP 106/65
[2017-12-10] MEDS: POTASSIUM CL 40MEQ IN 0.9%NACL 1,000 ML IV SCH ×2 (00:15→05:05)
--- NOTE | 2017-12-10 04:15 | PN ---
DATE: 12/09/2017 SUBJECTIVE: The patient is resting, slightly propped up in bed, no apparent distress. She is feeling generally slightly better. She has managed to tolerate some jello, has been up and about to have the shower, and does not feel as dizzy as yesterday. CLINICAL EXAMINATION: GENERAL: When I examined her this afternoon, she looked well and was clearly in no apparent respiratory distress, pale, but no jaundice, cyanosis, or thyromegaly. No jugular venous distention. No limb edema. VITAL SIGNS: Her heart rate was 59, blood pressure was 130/83, temperature was 98.2, respiratory rate 20, and oxygen saturation was 98%. Rest of clinical examination is unremarkable, has not really changed. Her intake was 3265. No output was recorded. LABORATORY WORK: As of this morning showed her white cell count was down to 8400, hemoglobin down to 12.6, hematocrit was 36, MCV 92, and platelet count 256,000. Her chemistry showed a serum sodium 140, potassium 3.8, chloride 108, bicarbonate 27, anion gap of 5, BUN 8, creatinine 0.7, estimated GFR was 96 mL per minute, her glucose was 89, calcium was 7.3, magnesium was 2.1. Total bilirubin, AST, ALT, alkaline phosphatase were normal. Total protein 5.7, albumin was 2.8. Her urinalysis was essentially unremarkable. Her urine toxic screen was positive for cannabinoids. ASSESSMENT: 1. Intractable nausea and vomiting. 2. Dehydration. 3. Hyponatremia. 4. Hypokalemia, all have resolved. Her serum sodium is 140, potassium is 3.8. PLAN: My plan is to continue with IV fluid in the form of normal saline and potassium. Continue with pain medication and Zofran. We will advance her diet to full liquid. Repeat her labs tomorrow and hopefully discharge her home tomorrow if she is able to tolerate her food and has no further episodes of nausea and vomiting. JULIETA LOZANO MD DR: YULISSA/etta JOB#: [id number] / [id number]
[2017-12-10 05:45] VITALS: BP 126/61
[2017-12-10 09:59] LABS: CALCIUM 8.5 mg/dL (8.5-10.1); CREATININE 0.7 mg/dL (0.6-1.0); GFR 96.4; MAGNESIUM 2.3 mg/dL (1.8-2.4); POTASSIUM 4.5 mmol/L (3.5-5.1)
[2017-12-10 11:05] VITALS: BP 126/77
--- NOTE | 2017-12-11 00:17 | DS ---
DATE OF DISCHARGE: 12/10/2017 HOSPITAL COURSE: The patient is a 32-year-old female patient, who came in with recurrent bouts of nausea, vomiting, abdominal pain and initially she was found to have severe hypokalemia with the potassium of 2.8. She was continued on IV fluid with potassium supplement and she was also initially dehydrated and we started her on clear liquid diet, advanced as tolerated, and has had no further episodes of nausea and vomiting. She is tolerating her diet, so potassium has normalized at 4.5 from 2.8. Her dehydration has resolved and has been up and about and a decision was made to discharge home to continue on all her current medications. PHYSICAL EXAMINATION: GENERAL: When I saw her this afternoon, she looked well and was clearly in no apparent respiratory distress, pale, but no jaundice, cyanosis, or thyromegaly. No jugular venous distention. No lower limb edema. VITAL SIGNS: Her heart rate was 65, blood pressure was 126/77, temperature was 98.6, respiratory rate was 18, and oxygen saturation was 98% on room air. HEAD, EYES, EARS, NOSE AND THROAT: Showed normocephalic, atraumatic. NECK: Supple. HEART: Showed normal first and second sounds. No gallop, rub or murmur. CHEST: Clear to auscultation. No crepitation or rhonchi. ABDOMEN: Distended, soft, nontender. NEUROLOGIC: She is awake, alert, responding appropriately. Cranial nerves are intact. EXTREMITIES: She moves extremities without difficulty. She ambulates without assistance or assistive devices. LABORATORY DATA: Her lab work as of this morning showed a serum sodium 140, potassium 4.5, chloride 108, bicarbonate 22, anion gap of 9, BUN 3, creatinine 0.7, estimated GFR was 96 mL per minute. Her glucose was 93, calcium was 8.5, magnesium 2.3 and her white cell count was 8400, hemoglobin 13, hematocrit 36, MCV 92, and platelet count 256,000. DISCHARGE MEDICATIONS: She was discharged home to continue on famotidine 20 mg daily, multivitamin with minerals 1 tablet once a day, Zofran 8 mg every 8 hours as needed, promethazine for Phenergan 12.5 mg suppository rectally as needed for nausea and vomiting, sucralfate 1 gram 4 times a day before meals. FINAL DISCHARGE DIAGNOSES: Intractable nausea and vomiting and dehydration, hypokalemia, reactive leukocytosis. JULIETA LOZANO MD DR: YULISSA/etta JOB#: [id number] / [id number]
== END 2017-12-10 14:30 | disposition home or self-care (01) | DRG 103 ==
LOC: ER 04:38 → 1 SOUTH 08:56
PROVIDERS: ADMIT Internal Medicine; ATTEND Internal Medicine
DX: G43.A1 Cyclical vomiting, in migraine, intractable (principal); E87.1 Hypo-osmolality and hyponatremia; K92.2 Gastrointestinal hemorrhage, unspecified; E87.6 Hypokalemia; E86.0 Dehydration; D72.828 Other elevated white blood cell count; F12.90 Cannabis use, unspecified, uncomplicated; F17.200 Nicotine dependence, unspecified, uncomplicated; F41.9 Anxiety disorder, unspecified; K21.9 Gastro-esophageal reflux disease without esophagitis; F32.9 Major depressive disorder, single episode, unspecified; J45.909 Unspecified asthma, uncomplicated; Z82.49 Family history of ischemic heart disease and other diseases of the circulatory system; Z90.49 Acquired absence of other specified parts of digestive tract; Z88.8 Allergy status to other drugs, medicaments and biological substances
CPT/HCPCS: 36415; 74177; 80048; 80053; 80307; 81001; 81025; 82271; 83690; 83735; 85007; 85025; 96365; 96366; 96375; 99406; C9113; J1885; J2060; J2270; J2405; J2550; Q9967; 99285-25; G0479; J7030

== ENCOUNTER 2018-01-16 17:33 | Inpatient (IN) | payer SELFPAY ==
[~2018-01-16] VITALS: Ht 170.2 cm; Wt 78.0 kg
[~2018-01-16 17:33] MED LIST changes: +FAMO-63 PO; +MULT-55 PO; +ONDA8TAB15 PO; +PROM12.553 RC
--- NOTE | 2018-01-16 17:56 | ED.ADGEN ---
Past History Past Medical History: No Pertinent History Past Surgical History: Appendectomy, Other Smoking: Cigarettes, Less than 1pk/day Alcohol Use: None Drug Use: None Adult General Chief Complaint Chief Complaint "... It seems like I get this cyclic vomiting around my period...it worse since my Depo went out... I just had my Depo replaced... I just seem get vomiting that will ... not stop once I start...." HPI HPI Patient is a 32 year old female who presents with above hx and complaints of nausea and vomiting. Patient relates vomiting starts at the time of her periods.. Has noted there has been marked reduction of symptoms when she is on control. No history of intake of bad food. No history of travel or specific ill contacts. No history immunosuppression. Patient does give a history of marijuana and tobacco use. He localizes her pain in epigastric area. Review of Systems Review of Systems Constitutional: Denies fever or chills [] Eyes: Denies change in visual acuity, redness, or eye pain [] HENT: Denies nasal congestion or sore throat [] Respiratory: Denies cough or shortness of breath [] Cardiovascular: No additional information not addressed in HPI [] GI: Generalized abdominal pain, nausea, vomiting,. Denies, bloody stools or diarrhea [] : Denies dysuria or hematuria [] Musculoskeletal: Denies back pain or joint pain [] Integument: Denies rash or skin lesions [] Neurologic: Denies headache, focal weakness or sensory changes [] Endocrine: Denies polyuria or polydipsia [] All other systems were reviewed and found to be within normal limits, except as documented in this note. Family History Family History Noncontributory Current Medications Current Medications Current Medications Medications (Trade) Dose Ordered Sig/Jaycee Start Time Stop Time Status Last Admin Dose Admin Diphenhydramine HCl (Benadryl) 50 mg 1X ONCE 01/16/18 20:00 01/16/18 20:01 DC 01/16/18 20:09 50 MG Lactated Ringer's 1,000 ml @ 1,000 mls/hr Q1H 01/16/18 18:31 01/16/18 19:30 DC 01/16/18 19:06 1,000 MLS/HR Ondansetron HCl (Zofran Odt) 8 mg 1X ONCE 01/16/18 18:00 01/16/18 18:01 DC 01/16/18 18:10 8 MG Promethazine HCl (Phenergan Im) 25 mg 1X ONCE 01/16/18 20:00 01/16/18 20:01 DC 01/16/18 20:06 25 MG Allergies Allergies Allergies Coded Allergies Type Severity Reaction Last Updated Verified tea tree Allergy Severe Rash 07/17/16 Yes ethinyl estradiol Adverse Reaction Intermediate Swelling 03/26/14 Yes etonogestrel Adverse Reaction Intermediate Swelling 03/26/14 Yes Physical Exam Physical Exam Constitutional: in acute distress, non-toxic appearance. [] HENT: Normocephalic, atraumatic, bilateral external ears normal, oropharynx moist, no oral exudates, nose normal. [] Eyes: PERRLA, EOMI, conjunctiva normal, no discharge. [] Neck: Normal range of motion, no tenderness, supple, no stridor. [] Cardiovascular:Heart rate regular rhythm, no murmur [] Lungs & Thorax: Bilateral breath sounds equal with scattered wheezes at apexes. on Auscultation [] Abdomen: Bowel sounds decreased, soft, generalized tenderness, some increased tenderness in epigastric and right upper quadrant ,no masses, no pulsatile masses. [] Skin: Warm, dry, no erythema, no rash. [] Back: No tenderness, no CVA tenderness. [] Extremities: No tenderness, no cyanosis, no clubbing, ROM intact, no edema. [] No psoas or obturator sign. Neurologic: Alert and oriented X 3, normal motor function, normal sensory function, no focal deficits noted. [] Psychologic: Affect Anxious, judgement normal, mood normal. [] Current Patient Data Vital Signs Vital Signs Date Time Temp Pulse Resp B/P (MAP) Pulse Ox O2 Delivery O2 Flow Rate FiO2 01/16/18 18:19 97.5 53 22 100 Room Air Lab Results Laboratory Tests Test 01/16/18 18:40 01/16/18 18:41 01/16/18 19:25 01/16/18 19:30 White Blood Count 13.1 x10^3/uL (4.0-11.0) H Red Blood Count 4.63 x10^6/uL (3.50-5.40) Hemoglobin 14.6 g/dL (12.0-15.5) Hematocrit 42.7 % (36.0-47.0) Mean Corpuscular Volume 92 fL (79-100) Mean Corpuscular Hemoglobin 32 pg (25-35) Mean Corpuscular Hemoglobin Concent 34 g/dL (31-37) Red Cell Distribution Width 13.3 % (11.5-14.5) Platelet Count 191 x10^3/uL (140-400) Neutrophils (%) (Auto) 90 % (31-73) H Lymphocytes (%) (Auto) 8 % (24-48) L Monocytes (%) (Auto) 2 % (0-9) Eosinophils (%) (Auto) 0 % (0-3) Basophils (%) (Auto) 0 % (0-3) Neutrophils # (Auto) 11.8 x10^3uL (1.8-7.7) H Lymphocytes # (Auto) 1.0 x10^3/uL (1.0-4.8) Monocytes # (Auto) 0.3 x10^3/uL (0.0-1.1) Eosinophils # (Auto) 0.0 x10^3/uL (0.0-0.7) Basophils # (Auto) 0.0 x10^3/uL (0.0-0.2) Sodium Level 143 mmol/L (136-145) Potassium Level 3.8 mmol/L (3.5-5.1) Chloride Level 109 mmol/L (98-107) H Carbon Dioxide Level 24 mmol/L (21-32) Anion Gap 10 (6-14) Blood Urea Nitrogen 11 mg/dL (7-20) Creatinine 0.7 mg/dL (0.6-1.0) Estimated GFR (Cockcroft-Gault) 96.4 Glucose Level 113 mg/dL (70-99) H Calcium Level 9.1 mg/dL (8.5-10.1) Total Bilirubin 0.3 mg/dL (0.2-1.0) Direct Bilirubin 0.1 mg/dL (0.0-0.2) Aspartate Amino Transferase (AST) 16 U/L (15-37) Alanine Aminotransferase (ALT) 22 U/L (14-59) Alkaline Phosphatase 76 U/L (46-116) Troponin I Quantitative < 0.017 ng/mL (0-0.055) Total Protein 7.7 g/dL (6.4-8.2) Albumin 4.0 g/dL (3.4-5.0) Lipase 73 U/L (73-393) POC Urine HCG, Qualitative hcg negative (Negative) Urine Collection Type Unknown Urine Color Yellow Urine Clarity Cloudy Urine pH 7.0 Urine Specific [place] 1.025 Urine Protein 100 mg/dl (NEG-TRACE) Urine Glucose (UA) Neg mg/dL (NEG) Urine Ketones (Stick) >=160 mg/dL (NEG) Urine Blood Mod (NEG) Urine Nitrite Neg (NEG) Urine Bilirubin Neg (NEG) Urine Urobilinogen Dipstick 0.2 mg/dL (0.2 mg/dL) Urine Leukocyte Esterase Neg (NEG) Urine RBC 20-40 /HPF (0-2) Urine WBC 1-4 /HPF (0-4) Urine Squamous Epithelial Cells Many /LPF Urine Bacteria Mod /HPF (0-FEW) Urine Mucus Marked /LPF Urine Opiates Screen Neg (NEG) Urine Methadone Screen Neg (NEG) Urine Barbiturates Neg (NEG) Urine Phencyclidine Screen Neg (NEG) Urine Amphetamine/Methamphetamine Neg (NEG) Urine Benzodiazepines Screen Pos (NEG) Urine Cocaine Screen Neg (NEG) Urine Cannabinoids Screen Pos (NEG) Urine Ethyl Alcohol Neg (NEG) EKG EKG [] Radiology/Procedures Radiology/Procedures My interpretation of acute abdomen film shows no free air under the diaphragm. No specific findings of ileus. Nonspecific bowel gas pattern.[] Course & Med Decision Making Course & Med Decision Making Pertinent Labs and Imaging studies reviewed. (See chart for details). Discussed presentation testing and treatment plan with Dr. Brooks - will admit for hydration and further tx. [] Final Impression Final Impression 1. Cyclic Vomiting 2. Abd. Pain 3. Marijuana and Tob. Use 4. Dehydration 5. Possible endometriosis induced vomiting 6. 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 KHOA YUN MD Jan 16, 2018 17:56
[2018-01-16] MEDS ORDERED: ONDANSETRON ODT 4 MG TAB.RAPDIS PO ONE (18:00)
[2018-01-16] MEDS ORDERED: IV RINGERS SOLUTION,LACTATED 1,000 ML IV SCH (18:31)
[2018-01-16 19:01] LABS: BASO % 0 % (0-3); EOS % 0 % (0-3); HEMATOCRIT 42.7 % (36.0-47.0); HEMOGLOBIN 14.6 g/dL (12.0-15.5); LYMPH % 8 % (24-48); MEAN CORPUSCULAR HEMOGLOBIN 32 pg (25-35); MEAN CORPUSCULAR HGB CONC 34 g/dL (31-37); MEAN CORPUSCULAR VOLUME 92 fL (79-100); MONO # 0.3 x10^3/uL (0.0-1.1); MONO % 2 % (0-9); NEUT # 11.8 x10^3uL (1.8-7.7); NEUT % 90 % (31-73); PLATELET COUNT 191 x10^3/uL (140-400); RED BLOOD COUNT 4.63 x10^6/uL (3.50-5.40); RED CELL DISTRIBUTION WIDTH 13.3 % (11.5-14.5); WHITE BLOOD COUNT 13.1 x10^3/uL (4.0-11.0)
[2018-01-16 19:15] LABS: CALCIUM 9.1 mg/dL (8.5-10.1); CREATININE 0.7 mg/dL (0.6-1.0); DIRECT BILIRUBIN 0.1 mg/dL (0.0-0.2); GFR 96.4; POTASSIUM 3.8 mmol/L (3.5-5.1); TOTAL BILIRUBIN 0.3 mg/dL (0.2-1.0); TOTAL PROTEIN 7.7 g/dL (6.4-8.2)
[2018-01-16] MEDS ORDERED: PROMETHAZINE IM 25 MG/ML VIAL IM ONE (20:00)
[2018-01-16] MEDS ORDERED: diphenhydrAMINE 50 MG/ML VIAL IM ONE (20:00)
[2018-01-16 20:16] LABS: BARBITURATES NEG (NEG); BENZODIAZEPINES POS (NEG); CANNABINOIDS POS (NEG); COCAINE NEG (NEG); METHADONE NEG (NEG); OPIATES NEG (NEG); PHENCYCLIDINE NEG (NEG)
[2018-01-16 20:17] LABS: AMPHETAMINE/METHAMPHETAMINE NEG (NEG)
[2018-01-16 20:53] LABS: BILIRUBIN,URINE NEG (NEG); CLARITY,URINE CLOUDY; COLOR,URINE YELLOW; GLUCOSE,URINE NEG (NEG); NITRITE,URINE NEG (NEG); UROBILINOGEN,URINE 0.2 mg/dL (0.2 mg/dL)
[2018-01-16 20:55] LABS: BACTERIA,URINE MOD /HPF (0-FEW); RBC,URINE 20-40 /HPF (0-2); SQUAMOUS EPITHELIAL CELL,UR MANY /LPF
[2018-01-16] MEDS ORDERED: PROMETHAZINE IM 25 MG/ML VIAL IM PRN (21:00)
[2018-01-16] MEDS ORDERED: KETOROLAC 60 MG/2 ML VIAL. IM ONE (21:00)
[2018-01-16] MEDS ORDERED: MORPHINE SULFATE 10 MG/ML SYRINGE. SQ ONE (21:00)
--- NOTE | 2018-01-16 22:20 | NUR ---
The patient, JESSE HULL, 32 y/o, F admitted by JULIETA LOZANO MD, was given written information regarding hospital policies, unit procedures and contact persons. Valuables were checked and noted.
[2018-01-16 23:53] VITALS: BP 92/55
[2018-01-17] MEDS: IV RINGERS SOLUTION,LACTATED 1,000 ML IV SCH ×3 (00:49→06:12)
[2018-01-17 05:58] VITALS: BP 154/87
[2018-01-17 06:37] LABS: BASO # 0.1 x10^3/uL (0.0-0.2); BASO % 0 % (0-3); EOS % 0 % (0-3); HEMATOCRIT 40.7 % (36.0-47.0); LYMPH # 1.5 x10^3/uL (1.0-4.8); LYMPH % 9 % (24-48); MEAN CORPUSCULAR HEMOGLOBIN 31 pg (25-35); MEAN CORPUSCULAR HGB CONC 34 g/dL (31-37); MEAN CORPUSCULAR VOLUME 91 fL (79-100); MONO % 6 % (0-9); NEUT % 85 % (31-73); PLATELET COUNT 195 x10^3/uL (140-400); RED BLOOD COUNT 4.46 x10^6/uL (3.50-5.40); RED CELL DISTRIBUTION WIDTH 13.4 % (11.5-14.5); WHITE BLOOD COUNT 16.5 x10^3/uL (4.0-11.0)
[2018-01-17 06:43] LABS: CALCIUM 8.6 mg/dL (8.5-10.1); CREATININE 0.7 mg/dL (0.6-1.0); GFR 96.4; POTASSIUM 3.4 mmol/L (3.5-5.1)
[2018-01-17] MEDS: ONDANSETRON PF 4 MG/2 ML VIAL. IV PRN ×2 (07:45→14:45)
--- NOTE | 2018-01-17 08:12 | RAD ---
Indication: Nausea, vomiting and epigastric pain TECHNIQUE: Single view of the chest with right and spot view of the abdomen and pelvis COMPARISON: None FINDINGS: Heart is normal in size. Lungs are clear. No pneumothorax or pleural effusion. Visualized bony thorax within normal limits. No abnormally dilated bowel loops or air-fluid levels. Visualized bones within normal limits. No abnormal calcific densities projecting over the kidneys or expected course of the ureters. IMPRESSION: No acute radiographic findings. Electronically signed by: Parish Stewart DO (01/17/2018 8:08 AM) [facility]
[2018-01-17] MEDS: POTASSIUM CL 40MEQ IN 0.9%NACL 1,000 ML IV SCH ×2 (09:14→15:45)
[2018-01-17 09:52] LABS: % BANDS 2 % (0-9); % LYMPHS 13 % (24-48); % MONOS 3 % (0-10); % SEGS 82 % (35-66); PLATELET CLUMP PRESENT; PLT ESTIMATE ADEQUATE (ADEQUATE)
[2018-01-17] MEDS ORDERED: PROMETHAZINE 12.5 MG in IV NORMAL SALINE 50ML 50 ML IV ONE (10:40)
[2018-01-17 11:34] VITALS: BP 156/65
[2018-01-17 14:59] VITALS: BP 172/84
[2018-01-17 19:21] VITALS: BP 110/64
--- NOTE | 2018-01-17 19:29 | HP ---
ADMIT DATE: 01/16/2018 HISTORY OF PRESENT ILLNESS: The patient is a 32-year-old female patient who came to the Emergency Room complaining that she has this recurrent episode of nausea and vomiting. She apparently has her Depo shot replaced about 2 weeks ago and started having nausea and vomiting yesterday, and she came to the Emergency Room. She denied any bad food intake. No history of travel or specific ill contact. The patient continued to smoke marijuana. She was investigated in the Emergency Room, was found to have mild leukocytosis and the patient was admitted for rehydration and antiemetic therapy. PAST MEDICAL HISTORY: Significant for gastroesophageal reflux disease, anxiety, depression, and bronchial asthma. 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 She has had esophagogastroduodenoscopy and appendectomy in 2005. ALLERGIES: She is allergic to NUVARING as well as T3 OIL. FAMILY HISTORY: She has 1 older brother and 1 younger sister, both are healthy. Her sister lives with her. Her father at the age of 45 because of congestive heart failure. Mother is at the age of 40 because she committed suicide. SOCIAL HISTORY: She is , has 1 daughter. She smokes half a pack a day, drinks alcohol occasionally. She continued to smoke marijuana. REVIEW OF SYSTEMS: As per history of present illness. MEDICATIONS: She is currently on following medications: She is on promethazine 12.5 mg rectally as needed, ondansetron 8 mg every 8 hours as needed, famotidine 20 mg once a day, multivitamin with mineral 1 tablet once a day. PHYSICAL EXAMINATION: GENERAL: On arrival to the Emergency Room, the patient did not show any pallor, jaundice, cyanosis, or thyromegaly. No jugular venous distension. No limb edema. VITAL SIGNS: Her heart rate was 53, blood pressure 129/67, temperature was 97.5, respiratory rate was 22 and oxygen saturation was 99% on room air. HEAD, EYES, EARS, NOSE AND THROAT: Showed normocephalic, atraumatic. NECK: Supple. HEART: Showed normal first and second sounds. No gallop, rub or murmur. CHEST: Clear to auscultation. No crepitation or rhonchi. ABDOMEN: Distended, soft, nontender except in the epigastric area. There is no guarding or rigidity. No organomegaly. Hernial orifice intact. Bowel sounds normal. NEUROLOGIC: She is awake, alert, responding appropriately. Cranial nerves intact. She moves extremities without difficulty. She ambulates without assistance or assistive devices. LABORATORY DATA: Showed serum sodium 143, potassium 3.8, chloride 109, bicarbonate 24, anion gap of 10, BUN 11, creatinine 0.7, estimated GFR was 96 mL per minute. Her glucose was 113, calcium was 9.1. Total bilirubin, AST, ALT, alkaline phosphatase were normal. Total protein 7.7, albumin 4, serum lipase was 73. Her white cell count was 13,000, hemoglobin 14.6, hematocrit 42, MCV 92, and platelet count of 191,000. Urinalysis showed the urine was yellow, cloudy with a pH of 7, specific gravity 1.025. There was large amount of protein. The urine was negative for glucose, large amount of ketones, moderate amount of blood, negative for nitrite and bilirubin as well as leukocyte esterase. There were 20-40 rbc's, 1-4 wbc's, moderate amount of bacteria. Her toxic screen was positive for benzodiazepine as well as cannabinoids. ASSESSMENT AND PLAN: The patient was admitted and was started on IV fluid with antiemetic. We will reconcile all her medications; however, they are all the same and follow her labs closely. JULIETA LOZANO MD DR: YULISSA/etta JOB#: [id number] / [id number]
[2018-01-17] MEDS ORDERED: PROMETHAZINE 25 MG/ML VIAL IV ONE (20:55)
[2018-01-17 23:22] VITALS: BP 158/75
[2018-01-18] MEDS: ONDANSETRON PF 4 MG/2 ML VIAL. IV PRN ×4 (00:25→23:17)
[2018-01-18] MEDS: diphenhydrAMINE 50 MG/ML VIAL IM PRN ×3 (02:18→23:17)
[2018-01-18] MEDS: POTASSIUM CL 40MEQ IN 0.9%NACL 1,000 ML IV SCH ×3 (02:24→22:16)
--- NOTE | 2018-01-18 02:42 | PN ---
DATE: 01/17/2018 SUBJECTIVE: The patient was admitted yesterday with recurrent bouts of nausea and vomiting. Unfortunately, she continued to vomit frequently and continued to have some abdominal pain. PHYSICAL EXAMINATION: GENERAL: When I examined her this afternoon, she was resting slightly propped up and has vomited at least 4-5 times by the time I was taking history from her; however, there was no pallor, jaundice, cyanosis, or thyromegaly. No jugular venous distension. No limb edema. VITAL SIGNS: Her heart rate was 62, blood pressure was 172/84, temperature was 98.7, respiratory rate was 22 and oxygen saturation was 100% on room air. The rest of clinical exam is stable. Her intake over the last 24 hours was almost 1100, no output was recorded. LABORATORY DATA: Her lab work this morning showed her white cell count is up to 16,500, hemoglobin 14, hematocrit 40, MCV 91, and platelet count of 195,000. Her chemistry showed a serum sodium of 141, potassium 3.4, chloride 106, bicarbonate 24, anion gap of 11, BUN 10, creatinine 0.7, estimated GFR was 96 mL per minute. Her glucose 109, calcium was 8.6. PLAN: To continue with IV fluid, continue with antiemetic. Monitor her lab works again and decide on treatment according to the finding. JULIETA LOZANO MD DR: YULISSA/etta JOB#: [id number] / [id number]
[2018-01-18 02:43] VITALS: BP 141/75
[2018-01-18 06:06] VITALS: BP 138/76
[2018-01-18 06:55] LABS: BASO % 0 % (0-3); EOS % 0 % (0-3); HEMATOCRIT 39.8 % (36.0-47.0); HEMOGLOBIN 13.7 g/dL (12.0-15.5); LYMPH # 2.1 x10^3/uL (1.0-4.8); LYMPH % 18 % (24-48); MEAN CORPUSCULAR HEMOGLOBIN 31 pg (25-35); MEAN CORPUSCULAR HGB CONC 34 g/dL (31-37); MEAN CORPUSCULAR VOLUME 92 fL (79-100); MONO # 0.9 x10^3/uL (0.0-1.1); MONO % 8 % (0-9); NEUT # 8.9 x10^3uL (1.8-7.7); NEUT % 74 % (31-73); PLATELET COUNT 174 x10^3/uL (140-400); RED BLOOD COUNT 4.35 x10^6/uL (3.50-5.40); RED CELL DISTRIBUTION WIDTH 13.1 % (11.5-14.5)
[2018-01-18 07:11] LABS: ALBUMIN 3.5 g/dL (3.4-5.0); ALBUMIN/GLOBULIN RATIO 1.1 (1.0-1.7); CALCIUM 8.1 mg/dL (8.5-10.1); CREATININE 0.7 mg/dL (0.6-1.0); GFR 96.4; POTASSIUM 3.6 mmol/L (3.5-5.1); TOTAL BILIRUBIN 0.5 mg/dL (0.2-1.0); TOTAL PROTEIN 6.7 g/dL (6.4-8.2)
[2018-01-18 11:10] VITALS: BP 167/114
[2018-01-18] MEDS: PROMETHAZINE 12.5 MG in IV NORMAL SALINE 50ML 50 ML IV PRN ×2 (12:14→19:37)
[2018-01-18 15:18] VITALS: BP 174/96
[2018-01-18] MEDS ORDERED: PANTOPRAZOLE IV 40 MG VIAL. IVP ONE (15:30)
--- NOTE | 2018-01-18 16:47 | NUR ---
Patient has been laying in bed all day. Patient continues to vomit intermittently. Patient states that medication works for a little bit but does not last. Patient will be started on Lovenox per Dr. Brooks for DVT prophylaxis.
[2018-01-18] MEDS: hydrALAZINE 20 MG/ML VIAL. IV PRN (17:06)
[2018-01-18] MEDS ORDERED: PROMETHAZINE 25 MG/ML VIAL IV ONE (19:30)
[2018-01-18 20:33] VITALS: BP 145/81
[2018-01-18 23:17] VITALS: BP 175/85
--- NOTE | 2018-01-19 01:06 | PN ---
DATE: 01/18/2018 SUBJECTIVE: The patient is resting, slightly ____, continued to have intractable nausea and vomiting, gets temporary relief by oral antiemetics, but she sleeps and wakes up again with recurrent bouts of nausea, vomiting. She is unable to keep anything so far by mouth, but if she takes, come back immediately. Her blood pressure is elevated. Otherwise, all her labs are within acceptable range. PHYSICAL EXAMINATION: GENERAL: When I examined her this afternoon, she looked well and was clearly in no apparent respiratory distress, pale. There is no pallor, jaundice, cyanosis, or thyromegaly. No jugular venous distension. No limb edema. VITAL SIGNS: Her heart rate was 70, blood pressure was 167/96, temperature was 98.6, respiratory rate was 18, and oxygen saturation 100% on room air. HEAD, EYES, EARS, NOSE AND THROAT: Showed normocephalic, atraumatic. NECK: Supple. HEART: Showed normal first and second sounds. No gallop, rub or murmur. CHEST: Clear to auscultation and rhonchi. ABDOMEN: Distended, soft, tender. NEUROLOGIC: She was grossly intact. Her intake was 1100, no output was recorded. LABORATORY DATA: This morning showed a serum sodium of 41, potassium 3.6, chloride 105, bicarbonate 26, anion gap of 10, BUN 6, creatinine 0.7, estimated GFR was 96 mL per minute. Her glucose was 99, calcium was 8.1. Total bilirubin, AST, ALT, alkaline phosphatase were normal. Total protein 6.7, albumin was 3.5. Lipase was normal. Her white cell count was 12,000, hemoglobin 13.7, hematocrit 39, MCV 92, and platelet count 274,000. ASSESSMENT: 1. Intractable nausea and vomiting, so far without any ____ response. 2. Hypertension. 3. Bronchial asthma, clinically quiescent. 4. Gastroesophageal reflux disease. 5. Anxiety and depression. PLAN: My plan is to continue with IV fluid. I will add Protonix IV and a p.r.n. medication for high blood pressure with clear-cut parameters. JULIETA LOZANO MD DR: YULISSA/etta JOB#: [id number] / [id number]
[2018-01-19] MEDS ORDERED: PROMETHAZINE 25 MG/ML VIAL IV ONE (03:28)
[2018-01-19] MEDS: PROMETHAZINE 12.5 MG in IV NORMAL SALINE 50ML 50 ML IV PRN (03:36)
[2018-01-19 05:41] VITALS: BP 178/106
[2018-01-19] MEDS: POTASSIUM CL 40MEQ IN 0.9%NACL 1,000 ML IV SCH ×3 (06:11→18:36)
[2018-01-19] MEDS: hydrALAZINE 20 MG/ML VIAL. IV PRN ×2 (06:12→22:56)
[2018-01-19 08:06] LABS: CALCIUM 8.5 mg/dL (8.5-10.1); CREATININE 0.6 mg/dL (0.6-1.0); GFR 115.1; POTASSIUM 4.3 mmol/L (3.5-5.1)
[2018-01-19] MEDS: PANTOPRAZOLE IV 40 MG VIAL. IVP SCH (09:03)
[2018-01-19] MEDS: diphenhydrAMINE 50 MG/ML VIAL IM PRN (09:43)
[2018-01-19] MEDS: ONDANSETRON PF 4 MG/2 ML VIAL. IV PRN ×3 (09:43→19:42)
--- NOTE | 2018-01-19 10:00 | NUR ---
Pt pleasant and cooperative but frustrated. Pt continues to vomit and complains of pain in the abdomen. Medications given for nausea/vomiting and pain.
[2018-01-19 11:45] VITALS: BP 126/76
[2018-01-19] MEDS: METOCLOPRAMIDE HCL 10 MG/2 ML VIAL. IV PRN ×2 (14:13→19:42)
[2018-01-19] MEDS ORDERED: IOHEXOL 300 MG/ML 75 ML VIAL. IV ONE (14:45)
[2018-01-19 16:14] VITALS: BP 159/79
[2018-01-19 19:49] VITALS: BP 174/99
[2018-01-19 22:28] VITALS: BP 177/102
--- NOTE | 2018-01-20 01:08 | PN ---
DATE: 01/19/2018 SUBJECTIVE: The patient is resting flat in bed, continued to have recurrent bouts of nausea and vomiting. Denied any diarrhea. Denied any abdominal pain. PHYSICAL EXAMINATION: GENERAL: When I examined her, she looked well and was clearly in no apparent respiratory distress, pale, but no jaundice, cyanosis or thyromegaly. No jugular venous distension. No lower limb edema. VITAL SIGNS: Her heart rate was 61, blood pressure was 126/76, temperature was 98.5, respiratory rate 20 and oxygen saturation was 99%. HEAD, EYES, EARS, NOSE AND THROAT: Showed normocephalic, atraumatic. NECK: Supple. HEART: Showed normal first and second heart sounds. No gallop, rub or murmur. CHEST: Clear to auscultation. No crepitation or rhonchi. ABDOMEN: Distended, soft, nontender. No guarding or rigidity. No organomegaly. Hernial orifice intact. Bowel sounds normal. NEUROLOGIC: She is awake, alert, responding appropriately. All her cranial nerves are intact. She moves extremities without difficulty. She ambulates without assistance or assistive devices. Her intake was 3400. LABORATORY DATA: This morning showed a serum sodium 136, potassium 4.3, chloride 103, bicarbonate 20, anion gap of 13, BUN 5, creatinine 0.6, estimated GFR was 115 mL per minute. Her glucose 85. Calcium was 8.5. Total bilirubin, AST, ALT, alkaline phosphatase were normal. Total protein 6.7. Albumin was 3.5. Lipase was 96. Toxic screen was positive for benzodiazepine and cannabinoids. ASSESSMENT: 1. Intractable nausea and vomiting, so far without any improvement. 2. Hypertension, very labile, bronchial asthma, clinically quiescent, gastroesophageal reflux disease, anxiety and depression. PLAN: My plan is to continue with IV antibiotic, IV Protonix. I will arrange for her to have a CT scan of the abdomen and pelvis. Continue to monitor her lab work and hope she responds and stop vomiting. JULIETA LOZANO MD DR: YULISSA/etta JOB#: [id number] / [id number]
[2018-01-20] MEDS: ONDANSETRON PF 4 MG/2 ML VIAL. IV PRN ×2 (02:01→08:09)
[2018-01-20] MEDS: METOCLOPRAMIDE HCL 10 MG/2 ML VIAL. IV PRN ×2 (02:01→08:10)
[2018-01-20] MEDS: POTASSIUM CL 40MEQ IN 0.9%NACL 1,000 ML IV SCH ×2 (02:09→11:39)
[2018-01-20 05:00] VITALS: BP 150/90
--- NOTE | 2018-01-20 05:18 | NUR ---
Pt has a had a much better night. Nausea and vomiting has been much better this shift. Pt has drank 300 mls of water and was able to keep it down. Pt has rested very well tonight.
[2018-01-20 07:08] LABS: HEMATOCRIT 43.4 % (36.0-47.0); HEMOGLOBIN 15.1 g/dL (12.0-15.5); RED BLOOD COUNT 4.79 x10^6/uL (3.50-5.40); RED CELL DISTRIBUTION WIDTH 12.8 % (11.5-14.5)
[2018-01-20 07:24] LABS: ALBUMIN 3.3 g/dL (3.4-5.0); CALCIUM 8.1 mg/dL (8.5-10.1); CREATININE 0.8 mg/dL (0.6-1.0); GFR 82.6; POTASSIUM 4.2 mmol/L (3.5-5.1); TOTAL BILIRUBIN 0.6 mg/dL (0.2-1.0); TOTAL PROTEIN 6.6 g/dL (6.4-8.2)
[2018-01-20] MEDS: PANTOPRAZOLE IV 40 MG VIAL. IVP SCH (08:11)
--- NOTE | 2018-01-20 10:31 | RAD ---
PQRS Compliance Statement: One or more of the following individualized dose reduction techniques were utilized for this examination: 1. Automated exposure control 2. Adjustment of the mA and/or kV according to patient size 3. Use of iterative reconstruction technique CT ABD PELV W/ IV CONTRST ONLY Clinical Indication: VOMITING SINCE TUESDAY Comparison: CT abdomen and pelvis with contrast, December 08, 2017. Technique: Helical CT imaging of the abdomen and pelvis is performed after 75 cc Omnipaque 300 IV contrast. Oral contrast not given. Findings: Lung bases are clear. Cardiac size normal. The liver, gallbladder, spleen, pancreas, adrenal glands, abdominal aorta, and kidneys are normal. Stomach unremarkable. No dilated small bowel. The appendix is not identified, no secondary signs of appendicitis. There is no colon wall thickening. No abdominal adenopathy or free fluid. There are subcentimeter mesenteric lymph nodes. Uterus unremarkable. Question 2.2 cm left adnexal cyst. Trace pelvic free fluid, probably physiologic. Urinary bladder is normal. Bones unremarkable. IMPRESSION: 1. No acute abdominal or pelvic abnormality. 2. Question small left ovary functional cyst. Trace pelvic free fluid. Findings are probably physiologic. Electronically signed by: Kevin Santizo MD (01/20/2018 10:27 AM) [id number]
[2018-01-20 10:46] VITALS: BP 154/74
--- NOTE | 2018-01-20 11:17 | DS ---
DATE OF DISCHARGE: 01/20/2018 HOSPITAL COURSE: The patient is a 32-year-old female patient, who came to the Emergency Room with recurrent bouts of nausea and vomiting. She was admitted on 01/16/2018 and she continues since then to have intractable nausea and vomiting and has not really subsided despite all the antiemetic including the Zofran, Reglan as well as Phenergan. She continued on IV fluid and IV Protonix without subsiding. We did a CT scan of the abdomen and pelvis with oral and IV contrast, which was unremarkable and as her symptoms not really subsiding, I decided to transfer her to [facility] to get assistance of the senior systems engineer. PHYSICAL EXAMINATION: GENERAL: On examining her today, she was resting flat, comfortably in bed, in no apparent distress. There is no pallor, jaundice or cyanosis. No lymphadenopathy, no thyromegaly. No jugular venous distension. No lower limb edema. VITAL SIGNS: Her heart rate was 82, blood pressure 150/90, temperature was 98.7, respiratory rate was 18 and oxygen saturation was 98%. HEAD, EYES, EARS, NOSE AND THROAT: Showed normocephalic, atraumatic. NECK: Supple. HEART: Showed normal first and second heart sounds. No gallop, rub or murmur. CHEST: Clear to auscultation. No crepitation or rhonchi. ABDOMEN: Distended, soft, nontender. NEUROLOGIC: She is awake, alert, responding appropriately. All cranial nerves intact. EXTREMITIES: She moves extremities without difficulty. She ambulates without assistance or assistive devices. Her intake was 2700, no output was recorded. LABORATORY DATA: Her lab work this morning showed a white cell count of 10,000, hemoglobin 15, hematocrit 43, MCV 91, and platelet count of 175,000. Her chemistry showed a serum sodium 136, potassium 4.2, chloride 104, bicarbonate 21, anion gap of 11, BUN 5, creatinine 0.8, estimated GFR was 82 mL per minute. Her glucose was 77, calcium was 8.1. Total bilirubin, AST, ALT, alkaline phosphatase were normal. Total protein 6.6, albumin 3.3. Lipase was consistently normal. Urinalysis showed that the urine was yellow, cloudy with a pH of 7, specific gravity of 1.025. There was small amount of protein, negative for glucose, large amount of ketones, moderate amount of blood, negative for nitrite and leukocyte esterase were 20-40 rbc's, 1-4 wbc's and moderate amount of bacteria. Her urine test negative, so far her urine culture showed only mixed urogenital matt. Her urine toxicology screen was positive for benzodiazepines and amphetamines and cannabinoids. DISCHARGE MEDICATIONS: The patient will be transferred to [facility] to continue metoclopramide 10 mg IV every 6 hours, Protonix 40 mg daily, fentanyl citrate 50 mcg IV q.4 hourly, IV fluid in the form of normal saline with 40 mEq of potassium chloride, Ondansetron 4 mg IV every 4 hours and diphenhydramine 50 mg 4 times a day. FINAL DISCHARGE DIAGNOSES: Intractable nausea and vomiting. OTHER MEDICAL PROBLEM: Gastroesophageal reflux disease, anxiety and depression, and bronchial asthma. JULIETA LOZANO MD DR: YULISSA/etta JOB#: [id number] / [id number]
--- NOTE | 2018-01-20 12:27 | NUR ---
Discharge Note: JESSE HULL [address] Discharge instructions and discharge home medications reviewed with KATERYNA PEÑA RN, and a copy given. All questions have been answered and understanding verbalized. The following instructions and handouts were given: MEDICATIONS, LABS, IMAGING, AND PLAN OF CARE DISCUSSED Discontinued lines and drains: PERIPHERAL IV LEFT INTACT FOR USE AT [facility]. Patient discharged to [facility] via EMS.
== END 2018-01-20 12:40 | disposition short-term general hospital (02) | DRG 392 ==
LOC: ER 17:33 → 1 SOUTH 20:30
PROVIDERS: ADMIT Internal Medicine; ATTEND Internal Medicine
DX: K31.89 Other diseases of stomach and duodenum (principal); R11.2 Nausea with vomiting, unspecified; E86.0 Dehydration; F12.90 Cannabis use, unspecified, uncomplicated; K21.9 Gastro-esophageal reflux disease without esophagitis; J45.909 Unspecified asthma, uncomplicated; F41.9 Anxiety disorder, unspecified; F32.9 Major depressive disorder, single episode, unspecified; F17.210 Nicotine dependence, cigarettes, uncomplicated; I10 Essential (primary) hypertension; D72.829 Elevated white blood cell count, unspecified; Z90.49 Acquired absence of other specified parts of digestive tract; Z88.8 Allergy status to other drugs, medicaments and biological substances; Z82.49 Family history of ischemic heart disease and other diseases of the circulatory system; Z79.899 Other long term (current) drug therapy
CPT/HCPCS: 36415; 74022; 74177; 80048; 80053; 80076; 80307; 81001; 81025; 83690; 84484; 85007; 85025; 85027; 87086; 96360; 96361; 96372; C9113; G0238; J0360; J1200; J2405; J2550; J2765; J3010; J7120; Q0162; Q9967; 99285-25; G0479

== ENCOUNTER 2018-05-04 19:20 | Emergency (ER) | payer SELFPAY ==
[~2018-05-04] VITALS: Ht 170.2 cm; Wt 70.2 kg
[2018-05-04] MEDS ORDERED: FAMOTIDINE 20 MG/2 ML VIAL IVP ONE (19:45)
[2018-05-04] MEDS ORDERED: HALOPERIDOL LACT 5 MG/ML VIAL. IVP ONE (19:45)
[2018-05-04] MEDS ORDERED: IV NORMAL SALINE 1,000ML 1,000 ML IV SCH (19:45)
[2018-05-04] MEDS ORDERED: ONDANSETRON PF 4 MG/2 ML VIAL. IV ONE (19:45)
[2018-05-04 20:08] LABS: BASO # 0.1 x10^3/uL (0.0-0.2); BASO % 0 % (0-3); EOS % 0 % (0-3); HEMATOCRIT 43.3 % (36.0-47.0); HEMOGLOBIN 14.6 g/dL (12.0-15.5); LYMPH # 1.2 x10^3/uL (1.0-4.8); LYMPH % 8 % (24-48); MEAN CORPUSCULAR HEMOGLOBIN 31 pg (25-35); MEAN CORPUSCULAR HGB CONC 34 g/dL (31-37); MEAN CORPUSCULAR VOLUME 93 fL (79-100); MONO # 0.3 x10^3/uL (0.0-1.1); MONO % 2 % (0-9); NEUT # 13.3 x10^3uL (1.8-7.7); NEUT % 90 % (31-73); PLATELET COUNT 228 x10^3/uL (140-400); RED BLOOD COUNT 4.66 x10^6/uL (3.50-5.40); RED CELL DISTRIBUTION WIDTH 13.6 % (11.5-14.5); WHITE BLOOD COUNT 14.9 x10^3/uL (4.0-11.0)
--- NOTE | 2018-05-04 20:15 | PHYS DOC ---
Past History Past Medical History: GERD Past Surgical History: Appendectomy, Other Smoking: Cigarettes, Less than 1pk/day Alcohol Use: None Drug Use: Marijuana Adult General Chief Complaint Chief Complaint: NAUSEA/VOMITING/DIARRHEA HPI HPI Patient is a 32 year old female who presents with complaint of nausea and vomiting that started earlier this morning at 0500. Patient has had history of recurrent symptoms and has had multiple workups in the past with no clear diagnosis as to the cause of her symptoms. Patient states she last had an episode approximately 2 months ago. The patient was seen at [facility] and underwent gallbladder studies which showed no abnormalities. Patient states that she started having symptoms very similar to previous episodes today. Patient states that she is having discomfort in her upper abdomen and has had numerous episodes of vomiting. Patient has started to notice small amounts of blood in her vomit over the last few episodes of vomiting. Denies any fever or bloody stools. Patient tried taking Zofran at home with no relief in symptoms. The patient does not have a primary doctor as she does not have insurance and states that she usually comes to the emergency department in order to receive treatment for these episodes. Review of Systems Review of Systems Constitutional: Denies fever or chills [] Eyes: Denies change in visual acuity, redness, or eye pain [] HENT: Denies nasal congestion or sore throat [] Respiratory: Denies cough or shortness of breath [] Cardiovascular: Denies chest pain or edema[] GI: Abdominal pain, nausea, vomiting, denies bloody stools[] : Denies dysuria or hematuria [] Musculoskeletal: Denies back pain or joint pain [] Integument: Denies rash or skin lesions [] Neurologic: Denies headache, focal weakness or sensory changes [] Endocrine: Denies polyuria or polydipsia [] All other systems were reviewed and found to be within normal limits, except as documented in this note. Current Medications Current Medications Current Medications Medications (Trade) Dose Ordered Sig/Jaycee Start Time Stop Time Status Last Admin Dose Admin Famotidine (Pepcid Vial) 20 mg 1X ONCE 05/04/18 19:45 05/04/18 19:46 DC 05/04/18 19:59 20 MG Haloperidol Lactate (Haldol) 5 mg 1X ONCE 05/04/18 19:45 05/04/18 19:46 DC 05/04/18 19:59 5 MG Ondansetron HCl (Zofran) 4 mg 1X ONCE 05/04/18 19:45 05/04/18 19:46 DC 05/04/18 19:59 4 MG Sodium Chloride 1,000 ml @ 1,000 mls/hr Q1H 05/04/18 19:45 05/04/18 20:44 05/04/18 19:59 1,000 MLS/HR Allergies Allergies Allergies Coded Allergies Type Severity Reaction Last Updated Verified tea tree Allergy Severe Rash 07/17/16 Yes ethinyl estradiol Adverse Reaction Intermediate Swelling 03/26/14 Yes etonogestrel Adverse Reaction Intermediate Swelling 03/26/14 Yes Physical Exam Physical Exam Constitutional: Alert, afebrile, appears ill, vital signs stable. [] HENT: Normocephalic, atraumatic, bilateral external ears normal, oropharynx moist, no oral exudates, nose normal. [] Eyes: PERRLA, EOMI, conjunctiva normal, no discharge. [] Neck: Normal range of motion, no tenderness, supple, no stridor. [] Cardiovascular:Heart rate regular rhythm, no murmur [] Lungs & Thorax: Bilateral breath sounds clear to auscultation [] Abdomen: Bowel sounds normal, soft, epigastric tenderness to palpation with guarding, no rebound tenderness, no masses, no pulsatile masses. [] Skin: Warm, dry, no erythema, no rash. [] Back: No tenderness, no CVA tenderness. [] Extremities: No tenderness, no cyanosis, no clubbing, ROM intact, no edema. [] Neurologic: Alert and oriented X 3, normal motor function, normal sensory function, no focal deficits noted. [] Current Patient Data Vital Signs Vital Signs Date Time Temp Pulse Resp B/P (MAP) Pulse Ox O2 Delivery O2 Flow Rate FiO2 05/04/18 19:30 98.2 66 18 99 Room Air Lab Results Laboratory Tests Test 05/04/18 19:25 White Blood Count 14.9 x10^3/uL (4.0-11.0) H Red Blood Count 4.66 x10^6/uL (3.50-5.40) Hemoglobin 14.6 g/dL (12.0-15.5) Hematocrit 43.3 % (36.0-47.0) Mean Corpuscular Volume 93 fL (79-100) Mean Corpuscular Hemoglobin 31 pg (25-35) Mean Corpuscular Hemoglobin Concent 34 g/dL (31-37) Red Cell Distribution Width 13.6 % (11.5-14.5) Platelet Count 228 x10^3/uL (140-400) Neutrophils (%) (Auto) 90 % (31-73) H Lymphocytes (%) (Auto) 8 % (24-48) L Monocytes (%) (Auto) 2 % (0-9) Eosinophils (%) (Auto) 0 % (0-3) Basophils (%) (Auto) 0 % (0-3) Neutrophils # (Auto) 13.3 x10^3uL (1.8-7.7) H Lymphocytes # (Auto) 1.2 x10^3/uL (1.0-4.8) Monocytes # (Auto) 0.3 x10^3/uL (0.0-1.1) Eosinophils # (Auto) 0.0 x10^3/uL (0.0-0.7) Basophils # (Auto) 0.1 x10^3/uL (0.0-0.2) EKG EKG Not performed[] Radiology/Procedures Radiology/Procedures Not performed[] Course & Med Decision Making Course & Med Decision Making Pertinent Labs and Imaging studies reviewed. (See chart for details) Patient was treated with IV Haldol, Zofran, and IV fluids in the emergency department. Patient reports improvement symptoms and has had no further vomiting. Patient aware that small amount of blood in emesis is likely due to Viviane-Araya tear as she has had this before and confirm that it did resolve without any needed treatment. Urinalysis shows bacteria and both red blood cells and white blood cells. Findings concerning for urinary tract infection. We 'll prescribe patient Macrobid for outpatient treatment. Patient also prescribed Phenergan. Advised follow-up with primary doctor in the next 5 days for reevaluation and return to emergency department for any worsening symptoms. Patient was understanding and in agreement with treatment plan. Dragon Disclaimer Dragon Disclaimer This electronic medical record was generated, in whole or in part, using a voice recognition dictation system. Departure Departure: Impression: Primary Impression: Non-intractable cyclical vomiting Additional Impression: Acute cystitis Disposition: HOME, SELF-CARE Condition: IMPROVED Referrals: PCP,NO (PCP) Patient Instructions: Nausea and Vomiting, Urinary Tract Infection Additional Instructions: Follow-up with your primary doctor in the next 5 days for reevaluation. Return to the emergency department for any worsening symptoms. Scripts Promethazine Hcl (PROMETHAZINE HCL) 25 Mg Tablet 1 TAB PO PRN Q6HRS PRN for NAUSEA/VOMITING, #20 TAB Prov: USAMA EDWARDS MD 05/04/18 Nitrofurantoin Monohyd/M-Cryst (MACROBID 100 MG CAPSULE) 100 Mg Capsule 1 CAP PO BID, #14 CAP Prov: USAMA EDWARDS MD 05/04/18 Problem Qualifiers Primary Impression: Non-intractable cyclical vomiting Nausea presence: with nausea Qualified Codes: G43.A0 - Cyclical vomiting, not intractable Additional Impression: Acute cystitis Hematuria presence: with hematuria Qualified Codes: N30.01 - Acute cystitis with hematuria USAMA EDWARDS MD May 04, 2018 20:15
[2018-05-04 20:27] LABS: ALBUMIN/GLOBULIN RATIO 1.1 (1.0-1.7); CALCIUM 9.6 mg/dL (8.5-10.1); CREATININE 0.6 mg/dL (0.6-1.0); GFR 115.1; POTASSIUM 3.5 mmol/L (3.5-5.1); TOTAL BILIRUBIN 0.4 mg/dL (0.2-1.0); TOTAL PROTEIN 7.7 g/dL (6.4-8.2)
[2018-05-04 21:13] LABS: COLOR,URINE AMBER
[2018-05-04 21:14] LABS: AMORPHOUS SEDIMENT,UR PRESENT /HPF; BACTERIA,URINE MOD /HPF (0-FEW); BILIRUBIN,URINE NEG (NEG); CLARITY,URINE CLOUDY; GLUCOSE,URINE NEG (NEG); NITRITE,URINE NEG (NEG); SQUAMOUS EPITHELIAL CELL,UR MOD /LPF; UROBILINOGEN,URINE 0.2 mg/dL (0.2 mg/dL)
[2018-05-04] MEDS ORDERED: PROM25TA10 PO (21:28)
[2018-05-04] MEDS ORDERED: NITR100C62 PO (21:28)
[2018-05-04 21:39] VITALS: BP 104/52
== END 2018-05-04 21:40 | disposition home or self-care (01) ==
LOC: ER 19:20
DX: G43.A0 Cyclical vomiting, in migraine, not intractable (principal); N30.01 Acute cystitis with hematuria; K21.9 Gastro-esophageal reflux disease without esophagitis; F17.210 Nicotine dependence, cigarettes, uncomplicated; Z90.89 Acquired absence of other organs; Z88.8 Allergy status to other drugs, medicaments and biological substances
CPT/HCPCS: 36415; 80053; 81001; 81025; 83690; 85025; 87086; 96361; 96374; 96375; 99284; J1630; J2405; S0028; J7030

== ENCOUNTER 2018-11-14 12:39 | Inpatient (IN) | payer BC ==
[~2018-11-14] VITALS: Ht 157.5 cm; Wt 64.0 kg
[2018-11-14 07:40] VITALS: BP 101/64
[~2018-11-14 12:39] MED LIST changes: +HYDR-3165 PO; -HYDR-971 PO; +NITR100C62 PO; +PROM25TA10 PO
[2018-11-14] MEDS ORDERED: IV NORMAL SALINE 1,000ML 1,000 ML IV SCH (12:57)
--- NOTE | 2018-11-14 13:04 | PHYS DOC ---
Past History Past Medical History: GERD Past Surgical History: Appendectomy, Other Smoking: Cigarettes, Less than 1pk/day Alcohol Use: None Drug Use: Marijuana Adult General Chief Complaint Chief Complaint: NAUSEA/VOMITING/DIARRHEA HPI HPI Patient is a 32 year old female who presents with complaint of nausea and vomiting. Patient states her symptoms started 4 days ago. Patient has history of cyclical vomiting syndrome. States that she has been taking Protonix and Zofran at home with no relief in symptoms. Is unable to keep any fluids down at this time. Does not currently follow with primary doctor. Denies any associated fevers. Is having generalized abdominal pain which is consistent with previous exacerbations of her cyclical vomiting syndrome. Denies any diarrhea or bloody stools. Review of Systems Review of Systems Constitutional: Denies fever or chills [] Eyes: Denies change in visual acuity, redness, or eye pain [] HENT: Denies nasal congestion or sore throat [] Respiratory: Denies cough or shortness of breath [] Cardiovascular: Denies chest pain or edema[] GI: Nausea, vomiting, abdominal pain, denies diarrhea[] : Denies dysuria or hematuria [] Musculoskeletal: Denies back pain or joint pain [] Integument: Denies rash or skin lesions [] Neurologic: Denies headache, focal weakness or sensory changes [] All other systems were reviewed and found to be within normal limits, except as documented in this note. Allergies Allergies Allergies Coded Allergies Type Severity Reaction Last Updated Verified tea tree Allergy Severe Rash 07/17/16 Yes ethinyl estradiol Adverse Reaction Intermediate Swelling 03/26/14 Yes etonogestrel Adverse Reaction Intermediate Swelling 03/26/14 Yes Physical Exam Physical Exam Constitutional: Alert, afebrile, appears ill. [] HENT: Normocephalic, atraumatic, bilateral external ears normal, oropharynx moist, no oral exudates, nose normal. [] Eyes: PERRLA, EOMI, conjunctiva normal, no discharge. [] Neck: Normal range of motion, no tenderness, supple, no stridor. [] Cardiovascular:Heart rate regular rhythm, no murmur [] Lungs & Thorax: Bilateral breath sounds clear to auscultation [] Abdomen: Bowel sounds normal, soft, generalized tenderness palpation, no guarding or rebound tenderness, no masses, no pulsatile masses. [] Skin: Warm, dry, no erythema, no rash. [] Back: No tenderness, no CVA tenderness. [] Extremities: No tenderness, no cyanosis, no clubbing, ROM intact, no edema. [] Neurologic: Alert and oriented X 3, normal motor function, normal sensory function, no focal deficits noted. [] Current Patient Data Vital Signs Vital Signs Date Time Temp Pulse Resp B/P (MAP) Pulse Ox O2 Delivery O2 Flow Rate FiO2 11/14/18 14:04 97.1 71 18 99 Room Air Lab Results Laboratory Tests Test 11/14/18 13:35 White Blood Count 9.6 x10^3/uL Red Blood Count 5.19 x10^6/uL Hemoglobin 16.5 g/dL Hematocrit 47.3 % Mean Corpuscular Volume 91 fL Mean Corpuscular Hemoglobin 32 pg Mean Corpuscular Hemoglobin Concent 35 g/dL Red Cell Distribution Width 13.3 % Platelet Count 250 x10^3/uL Neutrophils (%) (Auto) 72 % Lymphocytes (%) (Auto) 21 % Monocytes (%) (Auto) 6 % Eosinophils (%) (Auto) 0 % Basophils (%) (Auto) 1 % Neutrophils # (Auto) 6.9 x10^3uL Lymphocytes # (Auto) 2.1 x10^3/uL Monocytes # (Auto) 0.6 x10^3/uL Eosinophils # (Auto) 0.0 x10^3/uL Basophils # (Auto) 0.1 x10^3/uL Sodium Level 138 mmol/L Potassium Level 2.8 mmol/L Chloride Level 96 mmol/L Carbon Dioxide Level 30 mmol/L Anion Gap 12 Blood Urea Nitrogen 11 mg/dL Creatinine 0.7 mg/dL Estimated GFR (Cockcroft-Gault) 96.4 BUN/Creatinine Ratio 16 Glucose Level 93 mg/dL Calcium Level 9.6 mg/dL Total Bilirubin 0.7 mg/dL Aspartate Amino Transf (AST/SGOT) 20 U/L Alanine Aminotransferase (ALT/SGPT) 21 U/L Alkaline Phosphatase 73 U/L Total Protein 7.7 g/dL Albumin 3.9 g/dL Albumin/Globulin Ratio 1.0 Lipase 91 U/L Current Medications Medications (Trade) Dose Ordered Sig/Jaycee Route PRN Reason Start Time Stop Time Status Last Admin Dose Admin Sodium Chloride 1,000 ml @ 1,000 mls/hr Q1H IV 11/14/18 12:57 11/14/18 13:56 DC 11/14/18 13:34 Haloperidol Lactate (Haldol) 5 mg 1X ONCE IVP 11/14/18 13:15 11/14/18 13:16 DC 11/14/18 13:35 Lorazepam (Ativan) 1 mg 1X ONCE IV 11/14/18 13:15 11/14/18 13:16 DC 11/14/18 13:35 Ketorolac Tromethamine (Toradol 30mg Vial) 30 mg 1X ONCE IV 11/14/18 14:15 11/14/18 14:16 EKG EKG Not performed[] Radiology/Procedures Radiology/Procedures Not performed[] Course & Med Decision Making Course & Med Decision Making Pertinent Labs and Imaging studies reviewed. (See chart for details) Patient was given IV fluids, Haldol, and Ativan. No further episodes of vomiting, however patient states she feels too nauseous to attempt oral intake. Metabolic panel confirms significant hypokalemia. Due to inability for oral replacement, the patient will require IV supplementation and further treatment to control symptoms. After discussion we have agreed for admission to the hospital for further treatment. I spoke with Dr. Brooks who accepted care of patient in hospital.[] Dragon Disclaimer Dragon Disclaimer This electronic medical record was generated, in whole or in part, using a voice recognition dictation system. Departure Departure: Impression: Primary Impression: Intractable nausea and vomiting Additional Impressions: Hypokalemia Dehydration Disposition: 09 ADMITTED INPATIENT Admitting Physician: David Brooks Condition: STABLE Referrals: PCP,NO (PCP) Problem Qualifiers Primary Impression: Intractable nausea and vomiting Vomiting type: cyclical vomiting Qualified Codes: G43.A1 - Cyclical vomiting , intractable USAMA EDWARDS MD Nov 14, 2018 13:04
[2018-11-14] MEDS ORDERED: HALOPERIDOL LACT 5 MG/ML VIAL. IVP ONE (13:15)
[2018-11-14 13:43] LABS: BASO # 0.1 x10^3/uL (0.0-0.2); BASO % 1 % (0-3); EOS % 0 % (0-3); HEMATOCRIT 47.3 % (36.0-47.0); HEMOGLOBIN 16.5 g/dL (12.0-15.5); LYMPH # 2.1 x10^3/uL (1.0-4.8); LYMPH % 21 % (24-48); MEAN CORPUSCULAR HEMOGLOBIN 32 pg (25-35); MEAN CORPUSCULAR HGB CONC 35 g/dL (31-37); MEAN CORPUSCULAR VOLUME 91 fL (79-100); MONO # 0.6 x10^3/uL (0.0-1.1); MONO % 6 % (0-9); NEUT # 6.9 x10^3uL (1.8-7.7); NEUT % 72 % (31-73); PLATELET COUNT 250 x10^3/uL (140-400); RED BLOOD COUNT 5.19 x10^6/uL (3.50-5.40); RED CELL DISTRIBUTION WIDTH 13.3 % (11.5-14.5); WHITE BLOOD COUNT 9.6 x10^3/uL (4.0-11.0)
[2018-11-14 13:56] LABS: ALBUMIN 3.9 g/dL (3.4-5.0); CALCIUM 9.6 mg/dL (8.5-10.1); CREATININE 0.7 mg/dL (0.6-1.0); GFR 96.4; TOTAL BILIRUBIN 0.7 mg/dL (0.2-1.0); TOTAL PROTEIN 7.7 g/dL (6.4-8.2)
[2018-11-14 14:02] LABS: POTASSIUM 2.8 mmol/L (3.5-5.1)
[2018-11-14] MEDS ORDERED: KETOROLAC 30 MG/ML VIAL. IV ONE (14:15)
[2018-11-14] MEDS ORDERED: POTASSIUM CL 20MEQ D5-0.45NACL 1,000 ML IV ONE (14:30)
[2018-11-14] MEDS ORDERED: ACETAMINOPHEN 325 MG TABLET PO PRN (14:30)
[2018-11-14 17:16] VITALS: BP 125/78
--- NOTE | 2018-11-14 17:45 | NUR ---
NSG NOTE; ADMISSION ADMIT TO ROOM 120 FROM ED AT 1710 VIA CART ACCOMP BY EMS PERSONNEL C/O NAUSEA AND VOMITING X 5 DAYS
[2018-11-14] MEDS ORDERED: DOCU-109 PO (18:09)
[2018-11-14] MEDS: POTASSIUM CL 40MEQ IN 0.9%NACL 1,000 ML IV SCH (23:00)
[2018-11-14] MEDS: ONDANSETRON PF 4 MG/2 ML VIAL. IV PRN (23:02)
[2018-11-15 00:07] VITALS: BP 107/63
[2018-11-15] MEDS: KETOROLAC 15 MG/ML VIAL. IV PRN ×2 (00:27→07:33)
[2018-11-15 00:39] LABS: BILIRUBIN,URINE NEG (NEG); CLARITY,URINE CLEAR; COLOR,URINE YELLOW; GLUCOSE,URINE NEG (NEG)
[2018-11-15 00:40] LABS: BACTERIA,URINE FEW /HPF (0-FEW); NITRITE,URINE NEG (NEG); RBC,URINE 0 /HPF (0-2); SQUAMOUS EPITHELIAL CELL,UR MOD /LPF; UROBILINOGEN,URINE 2 mg/dL (0.2 mg/dL); WBC,URINE OCC /HPF (0-4)
[2018-11-15] MEDS: POTASSIUM CL 40MEQ IN 0.9%NACL 1,000 ML IV SCH ×2 (02:15→09:58)
[2018-11-15 06:10] VITALS: BP 96/60
[2018-11-15 06:52] LABS: BASO % 0 % (0-3); EOS % 1 % (0-3); HEMATOCRIT 38.7 % (36.0-47.0); HEMOGLOBIN 13.6 g/dL (12.0-15.5); LYMPH # 3.1 x10^3/uL (1.0-4.8); LYMPH % 35 % (24-48); MEAN CORPUSCULAR HEMOGLOBIN 32 pg (25-35); MEAN CORPUSCULAR HGB CONC 35 g/dL (31-37); MEAN CORPUSCULAR VOLUME 92 fL (79-100); MONO # 0.8 x10^3/uL (0.0-1.1); MONO % 9 % (0-9); NEUT # 4.8 x10^3uL (1.8-7.7); NEUT % 55 % (31-73); PLATELET COUNT 196 x10^3/uL (140-400); RED BLOOD COUNT 4.21 x10^6/uL (3.50-5.40); RED CELL DISTRIBUTION WIDTH 13.5 % (11.5-14.5); WHITE BLOOD COUNT 8.7 x10^3/uL (4.0-11.0)
[2018-11-15 07:04] LABS: CALCIUM 8.4 mg/dL (8.5-10.1); CREATININE 0.8 mg/dL (0.6-1.0); GFR 82.6; POTASSIUM 3.2 mmol/L (3.5-5.1)
[2018-11-15] MEDS: ONDANSETRON PF 4 MG/2 ML VIAL. IV PRN (07:39)
[2018-11-15 11:03] VITALS: BP 103/68
--- NOTE | 2018-11-15 12:01 | HP ---
ADMIT DATE: 11/14/2018 HISTORY OF PRESENT ILLNESS: The patient is a 32-year-old female patient who came again to the Emergency Room with complaint of recurrent bouts of nausea, vomiting and generalized abdominal pain that started about 4 days ago. She has a history of cyclical vomiting syndrome. She stated that she has been taking her antiemetics and Protonix without much relief. She is unable to keep any fluids down and has no primary doctor. She was seen in the Emergency Room and her lab work showed that she was hypokalemic with the potassium of 2.8. She was clearly dehydrated and therefore she was admitted and started on IV fluid and to replenish her potassium. PAST MEDICAL HISTORY: Her past medical history is significant for gastroesophageal reflux disease, anxiety, depression and bronchial asthma as well as cyclical vomiting syndrome and marijuana abuse. 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 She also underwent exploratory laparotomy and adhesiolysis in 2010. She has had esophagogastroduodenoscopy and appendectomy in 2005. ALLERGIES: She is ALLERGIC TO NUVARING as well as T3 OIL. FAMILY HISTORY: She has one older brother and one younger sister, both are healthy. Her sister lives with her. Her father at the age of 45 because of congestive heart failure. Her mother at age of 40 as she committed suicide. SOCIAL HISTORY: She is , has one daughter. She continued to smoke cigarettes and drinks alcohol occasionally. She continued to smoke marijuana. MEDICATIONS: She is currently on following medications: She is on promethazine 12.5 mg rectally as needed for nausea, vomiting, Colace 100 mg twice a day, ondansetron 8 mg every 8 hours, famotidine 20 mg once a day, multivitamin with mineral 1 tablet once a day. REVIEW OF SYSTEMS: As per history of present illness. PHYSICAL EXAMINATION: GENERAL: On arrival to the Emergency Room, she looked well and was clearly in no apparent respiratory distress. No pallor, jaundice, cyanosis, or thyromegaly. No jugular venous distension. No lower limb edema. VITAL SIGNS: Her heart rate was 66, blood pressure was 125/78, temperature was 98.7, respiratory rate was 18 and oxygen saturation was 99%. HEENT: Examination of the head, eyes, ears, nose and throat showed normocephalic, atraumatic. NECK: Supple. HEART: Showed normal first and second heart sounds. No gallop, rub or murmur. CHEST: Clear to auscultation. No crepitation or rhonchi. ABDOMEN: Distended, soft, nontender. NEUROLOGIC: She is awake, alert, responding appropriately. All her cranial nerves are intact. EXTREMITIES: She moves extremities without difficulty. She ambulates without assistance or assistive devices. LABORATORY DATA: Her lab work on admission showed a white cell count 9600, hemoglobin 16.5, hematocrit 47.3, MCV 91 and platelet count 250,000 with normal manual differential. Her chemistry showed the serum sodium 138, potassium was 2.8, chloride 96, bicarbonate 30, anion gap of 12, BUN 11, creatinine 0.7, estimated GFR was 96 mL per minute. Her glucose was 93. Her calcium was 9.6. Her total bilirubin, AST, ALT and alkaline phosphatase were normal. Total protein was 7.7, albumin 3.9. Serum lipase was 91. Her urinalysis showed the urine was yellow, clear with the pH of 7, specific gravity of 1.015. There was large amount of protein, negative for glucose, ketones, small amount of blood, negative for nitrite and leukocyte esterase. There are no RBCs, no WBCs, and no bacteria. ASSESSMENT AND PLAN: So, in summary, this is a 32-year-old female patient who came again with cyclical vomiting syndrome. She has hypokalemia, dehydration. We will continue with IV fluid to replenish her potassium, continue with antiemetic and Toradol for pain. JULIETA LOZANO MD DR: YULISSA/etta JOB#: [id number] / [id number]
--- NOTE | 2018-11-15 13:46 | NUR ---
NURSING NOTE DISCHARGE PT DISCHARGED TO HOME VIA AMBULATION ACCOMPANIED BY . WRITTEN AND VERBAL DISCHARGE INSTRUCTIONS GIVEN TO PT. NO SCRIPTS. NO COMPLICATIONS. KAMRAN BROWN.
[2018-11-15] MEDS ORDERED: POTASSIUM CHLORIDE 20 MEQ TABLET.ER. PO ONE (14:00)
--- NOTE | 2018-11-15 15:17 | DS ---
DATE OF DISCHARGE: 11/15/2018 HOSPITAL COURSE: The patient is a 32-year-old female patient, who was admitted through the Emergency Room with recurrent bouts of nausea, vomiting. She was found to be clinically dehydrated and hypokalemic. She was admitted, started on IV fluid with potassium supplement and also antiemetic and did well. Her diet was advanced from clear liquid to regular diet and she rated her food without difficulty. Her potassium has improved and a decision was made to discharge her home. PHYSICAL EXAMINATION: GENERAL: When I examined her this afternoon, she looked well and was clearly in no apparent respiratory distress. No pallor, jaundice, cyanosis or thyromegaly. No jugular venous distention. No limb edema. VITAL SIGNS: Her heart rate was 56, blood pressure was 103/68, temperature was 98.3, respiratory rate was 20, and oxygen saturation was 98%. Rest of clinical examination is unremarkable, has not really changed. LABORATORY DATA: Her serum sodium was 137, potassium 3.2, chloride 103, bicarbonate 26, anion gap of 8, BUN 10, creatinine 0.8, estimated GFR was 82 mL per minute. Her glucose was 83, calcium was 8.4. Her white cell count was 8700, hemoglobin was 13.6, hematocrit 38.7, MCV 92, and platelet count of 196. DISCHARGE MEDICATIONS: She was discharged home to continue on Colace 100 mg twice a day, famotidine for Pepcid 20 mg daily, multivitamin with mineral 1 tablet once a day, ondansetron 8 mg p.r.n. as needed every 8 hours for nausea and vomiting, promethazine Phenergan 12.5 mg suppositories rectally as needed for nausea and vomiting. FINAL DISCHARGE DIAGNOSES: Marijuana-induced cyclical vomiting, hypokalemia and dehydration. JULIETA LOZANO MD DR: YULISSA/etta JOB#: [id number] / [id number]
== END 2018-11-15 13:45 | disposition home or self-care (01) | DRG 918 ==
LOC: ER 12:39 → 1 SOUTH 14:15
PROVIDERS: ADMIT Internal Medicine; ATTEND Internal Medicine
DX: T40.7X1A Poisoning by cannabis (derivatives), accidental (unintentional), initial encounter (principal); K21.9 Gastro-esophageal reflux disease without esophagitis; F12.90 Cannabis use, unspecified, uncomplicated; E87.6 Hypokalemia; E86.0 Dehydration; J45.909 Unspecified asthma, uncomplicated; F17.210 Nicotine dependence, cigarettes, uncomplicated; F32.9 Major depressive disorder, single episode, unspecified; F41.9 Anxiety disorder, unspecified; G43.A0 Cyclical vomiting, in migraine, not intractable; Y92.89 Other specified places as the place of occurrence of the external cause; Z90.49 Acquired absence of other specified parts of digestive tract; Z88.8 Allergy status to other drugs, medicaments and biological substances; Z82.49 Family history of ischemic heart disease and other diseases of the circulatory system
CPT/HCPCS: 36415; 80048; 80053; 81001; 83690; 85025; 96361; 96365; 96375; J1630; J1885; J2060; J2405; 99285-25; J7030

== ENCOUNTER 2018-12-22 20:38 | Inpatient (IN) | payer BC ==
[~2018-12-22] VITALS: Ht 157.5 cm; Wt 60.6 kg
[~2018-12-22 20:38] MED LIST changes: +DOCU-109 PO
[2018-12-22] MEDS ORDERED: IV NORMAL SALINE 1,000ML 1,000 ML IV SCH (21:06)
[2018-12-22] MEDS ORDERED: FAMOTIDINE 20 MG/2 ML VIAL IVP ONE (21:30)
[2018-12-22] MEDS ORDERED: METOCLOPRAMIDE HCL 10 MG/2 ML VIAL. IV ONE ×2 (21:30→23:15)
[2018-12-22] MEDS ORDERED: diphenhydrAMINE 50 MG/ML VIAL IVP ONE (21:30)
[2018-12-22 21:32] LABS: BASO % 0 % (0-3); EOS % 0 % (0-3); HEMATOCRIT 50.9 % (36.0-47.0); HEMOGLOBIN 17.8 g/dL (12.0-15.5); LYMPH # 2.3 x10^3/uL (1.0-4.8); LYMPH % 23 % (24-48); MEAN CORPUSCULAR HEMOGLOBIN 32 pg (25-35); MEAN CORPUSCULAR HGB CONC 35 g/dL (31-37); MEAN CORPUSCULAR VOLUME 92 fL (79-100); MONO % 10 % (0-9); NEUT # 6.8 x10^3uL (1.8-7.7); NEUT % 67 % (31-73); PLATELET COUNT 240 x10^3/uL (140-400); RED BLOOD COUNT 5.52 x10^6/uL (3.50-5.40); RED CELL DISTRIBUTION WIDTH 13.6 % (11.5-14.5); WHITE BLOOD COUNT 10.2 x10^3/uL (4.0-11.0)
[2018-12-22 22:40] LABS: ALBUMIN 4.1 g/dL (3.4-5.0); ALBUMIN/GLOBULIN RATIO 1.1 (1.0-1.7); CALCIUM 9.5 mg/dL (8.5-10.1); CREATININE 0.8 mg/dL (0.6-1.0); GFR 82.1; POTASSIUM 3.2 mmol/L (3.5-5.1); TOTAL BILIRUBIN 0.7 mg/dL (0.2-1.0)
--- NOTE | 2018-12-22 23:30 | PHYS DOC ---
Past History Past Medical History: No Pertinent History Past Surgical History: Other Smoking: Cigarettes, Less than 1pk/day Alcohol Use: Occasionally Drug Use: Marijuana Social History Narrative: Pt states, "I have stopped smoking 2 weeks ago." Adult General Chief Complaint Chief Complaint: NAUSEA/VOMITING/DIARRHEA HPI HPI Patient is a 33-year-old female who presents with complaint of upper abdominal pain with nausea and vomiting that has been going on for the last 3 days. Patient is well-known to this department and frequently presents with very similar symptoms. Patient has been informed on numerous occasions that it is believed that she is suffering from cannabis hyperemesis syndrome. Up until recently, patient has refused to accept that marijuana may be causing her symptoms; however, patient's indicates that they have stopped smoking marijuana and last use was approximately 2 weeks ago. Patient rates her pain to be a 10 out of 10. Patient states that nothing is improving her symptoms. She states the symptoms are worsened if she tries to eat or drink anything.[] Review of Systems Review of Systems Constitutional: Denies fever or chills [] Respiratory: Denies cough or shortness of breath [] Cardiovascular: No additional information not addressed in HPI [] GI: Complains of abdominal pain with nausea and vomiting. Denies diarrhea [] Musculoskeletal: Denies back pain or joint pain [] Neurologic: Denies headache, focal weakness or sensory changes [] All other systems were reviewed and found to be within normal limits, except as documented in this note. Current Medications Current Medications Current Medications Medications (Trade) Dose Ordered Sig/Jaycee Start Time Stop Time Status Last Admin Dose Admin Diphenhydramine HCl (Benadryl) 25 mg 1X ONCE 12/22/18 21:30 12/22/18 21:31 DC 12/22/18 21:33 25 MG Famotidine (Pepcid Vial) 20 mg 1X ONCE 12/22/18 21:30 12/22/18 21:31 DC 12/22/18 21:33 20 MG Fentanyl Citrate (Fentanyl 2ml Vial) 25 mcg PRN Q15MIN PRN 12/22/18 21:15 12/23/18 21:14 12/22/18 23:23 25 MCG Metoclopramide HCl (Reglan Vial) 10 mg 1X ONCE 12/22/18 23:15 12/22/18 23:16 DC 12/22/18 23:23 10 MG Potassium Chloride (Klor-Con) 40 meq 1X ONCE 12/22/18 23:30 12/22/18 23:31 UNV Sodium Chloride 1,000 ml @ 1,000 mls/hr Q1H 12/22/18 21:06 12/22/18 22:05 DC 12/22/18 21:32 1,000 MLS/HR Allergies Allergies Allergies Coded Allergies Type Severity Reaction Last Updated Verified tea tree Allergy Severe Rash 07/17/16 Yes ethinyl estradiol Adverse Reaction Intermediate Swelling 03/26/14 Yes etonogestrel Adverse Reaction Intermediate Swelling 03/26/14 Yes fluoxetine Adverse Reaction Intermediate 11/15/18 Yes Physical Exam Physical Exam Constitutional: Well developed, well nourished, appears uncomfortable, non-toxic appearance. [] HENT: Normocephalic, atraumatic, bilateral external ears normal, oropharynx moist, no oral exudates, nose normal. [] Eyes: PERRLA, EOMI, conjunctiva normal, no discharge. [] Neck: Normal range of motion, no tenderness, supple, no stridor. [] Cardiovascular: Regular rate and rhythm[] Lungs & Thorax: Bilateral breath sounds clear to auscultation [] Abdomen: Bowel sounds normal, soft, with epigastric tenderness. [] Skin: Warm, dry, no erythema, no rash. [] Extremities: No tenderness, no cyanosis, no clubbing, ROM intact, no edema. [] Neurologic: Alert and oriented X 3, no focal deficits noted. [] Current Patient Data Vital Signs Vital Signs Date Time Temp Pulse Resp B/P (MAP) Pulse Ox O2 Delivery O2 Flow Rate FiO2 12/22/18 23:23 98 12/22/18 20:56 98.5 93 16 Lab Results Laboratory Tests Test 12/22/18 21:23 12/22/18 22:15 White Blood Count 10.2 x10^3/uL (4.0-11.0) Red Blood Count 5.52 x10^6/uL (3.50-5.40) H Hemoglobin 17.8 g/dL (12.0-15.5) H Hematocrit 50.9 % (36.0-47.0) H Mean Corpuscular Volume 92 fL (79-100) Mean Corpuscular Hemoglobin 32 pg (25-35) Mean Corpuscular Hemoglobin Concent 35 g/dL (31-37) Red Cell Distribution Width 13.6 % (11.5-14.5) Platelet Count 240 x10^3/uL (140-400) Neutrophils (%) (Auto) 67 % (31-73) Lymphocytes (%) (Auto) 23 % (24-48) L Monocytes (%) (Auto) 10 % (0-9) H Eosinophils (%) (Auto) 0 % (0-3) Basophils (%) (Auto) 0 % (0-3) Neutrophils # (Auto) 6.8 x10^3uL (1.8-7.7) Lymphocytes # (Auto) 2.3 x10^3/uL (1.0-4.8) Monocytes # (Auto) 1.0 x10^3/uL (0.0-1.1) Eosinophils # (Auto) 0.0 x10^3/uL (0.0-0.7) Basophils # (Auto) 0.0 x10^3/uL (0.0-0.2) Sodium Level 137 mmol/L (136-145) Potassium Level 3.2 mmol/L (3.5-5.1) L Chloride Level 96 mmol/L (98-107) L Carbon Dioxide Level 35 mmol/L (21-32) H Anion Gap 6 (6-14) Blood Urea Nitrogen 13 mg/dL (7-20) Creatinine 0.8 mg/dL (0.6-1.0) Estimated GFR (Cockcroft-Gault) 82.1 BUN/Creatinine Ratio 16 (6-20) Glucose Level 84 mg/dL (70-99) Calcium Level 9.5 mg/dL (8.5-10.1) Total Bilirubin 0.7 mg/dL (0.2-1.0) Aspartate Amino Transferase (AST) 17 U/L (15-37) Alanine Aminotransferase (ALT) 23 U/L (14-59) Alkaline Phosphatase 70 U/L (46-116) Total Protein 8.0 g/dL (6.4-8.2) Albumin 4.1 g/dL (3.4-5.0) Albumin/Globulin Ratio 1.1 (1.0-1.7) Lipase 662 U/L (73-393) H EKG EKG [] Radiology/Procedures Radiology/Procedures [] Course & Med Decision Making Course & Med Decision Making Pertinent Labs and Imaging studies reviewed. (See chart for details) [] Dragon Disclaimer Dragon Disclaimer This electronic medical record was generated, in whole or in part, using a voice recognition dictation system. Departure Departure: Impression: Primary Impression: Cannabis hyperemesis syndrome concurrent with and due to cannabis abuse Additional Impressions: Intractable vomiting with nausea Hypokalemia Dehydration Disposition: 09 ADMITTED INPATIENT Admitting Physician: David Brooks Condition: IMPROVED Referrals: PCP,NO (PCP) Problem Qualifiers Additional Impressions: Intractable vomiting with nausea Vomiting type: unspecified Qualified Codes: R11.2 - Nausea with vomiting, unspecified FLORIN MARRERO Jr. DO December 22, 2018 23:30
[2018-12-22 23:31] LABS: BILIRUBIN,URINE NEG (NEG); CLARITY,URINE HAZY; COLOR,URINE YELLOW; GLUCOSE,URINE NEG (NEG)
[2018-12-22 23:33] LABS: NITRITE,URINE NEG (NEG); UROBILINOGEN,URINE 0.2 mg/dL (0.2 mg/dL)
[2018-12-22 23:34] LABS: BACTERIA,URINE FEW /HPF (0-FEW); SQUAMOUS EPITHELIAL CELL,UR FEW /LPF
[2018-12-22 23:36] LABS: BARBITURATES NEG (NEG); BENZODIAZEPINES POS (NEG); CANNABINOIDS POS (NEG); COCAINE NEG (NEG); METHADONE NEG (NEG); OPIATES NEG (NEG); PHENCYCLIDINE NEG (NEG)
[2018-12-22 23:38] LABS: AMPHETAMINE/METHAMPHETAMINE NEG (NEG)
[2018-12-22] MEDS ORDERED: POTASSIUM CHLORIDE 20 MEQ TABLET.ER. PO ONE (23:45)
[2018-12-23] VITALS (7 sets, daily range): BP systolic 137–162; BP diastolic 75–91
[2018-12-23] MEDS ORDERED: IV NORMAL SALINE 1,000ML 1,000 ML IV SCH
[2018-12-23] MEDS ORDERED: MORPHINE SULFATE 2 MG/ML DISP.SYRIN. IV PRN
[2018-12-23] MEDS ORDERED: IV NORMAL SALINE 1,000ML 1,000 ML IV ONE (00:15)
[2018-12-23] MEDS ORDERED: POTASSIUM CHLORIDE 10MEQ 100 ML IV ONE (00:15)
[2018-12-23] MEDS: MORPHINE SULFATE 4 MG/ML DISP.SYRIN. IV PRN ×2 (02:05→05:40)
[2018-12-23] MEDS: ONDANSETRON PF 4 MG/2 ML VIAL. IV PRN ×5 (03:38→22:49)
[2018-12-23] MEDS ORDERED: ONDA4TAB7 PO (06:26)
[2018-12-23] MEDS ORDERED: OMEP20TA63 PO (06:27)
[2018-12-23 06:36] LABS: CALCIUM 8.7 mg/dL (8.5-10.1); CREATININE 0.8 mg/dL (0.6-1.0); GFR 82.1
[2018-12-23 06:37] LABS: BASO % 0 % (0-3); EOS % 0 % (0-3); HEMATOCRIT 44.3 % (36.0-47.0); HEMOGLOBIN 15.4 g/dL (12.0-15.5); LYMPH # 2.4 x10^3/uL (1.0-4.8); LYMPH % 28 % (24-48); MEAN CORPUSCULAR HEMOGLOBIN 32 pg (25-35); MEAN CORPUSCULAR HGB CONC 35 g/dL (31-37); MEAN CORPUSCULAR VOLUME 91 fL (79-100); MONO # 0.9 x10^3/uL (0.0-1.1); MONO % 11 % (0-9); NEUT # 5.2 x10^3uL (1.8-7.7); NEUT % 61 % (31-73); PLATELET COUNT 177 x10^3/uL (140-400); RED BLOOD COUNT 4.86 x10^6/uL (3.50-5.40); RED CELL DISTRIBUTION WIDTH 13.1 % (11.5-14.5); WHITE BLOOD COUNT 8.5 x10^3/uL (4.0-11.0)
[2018-12-23 06:44] LABS: POTASSIUM 2.7 mmol/L (3.5-5.1)
[2018-12-23] MEDS: POTASSIUM CL 40MEQ IN 0.9%NACL 1,000 ML IV SCH ×2 (07:20→17:29)
[2018-12-23] MEDS: KETOROLAC 30 MG/ML VIAL. IV PRN ×3 (08:16→21:00)
--- NOTE | 2018-12-23 13:26 | HP ---
ADMIT DATE: 12/23/2018 HISTORY OF PRESENT ILLNESS: The patient is a 33-year-old female patient who came to the Emergency Room with recurrent bouts of nausea, vomiting as well as diarrhea that has been going on for the last 3 days. She is well known to the Emergency Room as well as hospital as she frequently comes with similar symptoms. She was discharged from this hospital on 11/15/2018 for exactly similar complaint. She always claims that she has stopped smoking marijuana, but she definitely continues and her drug tox screen was positive again for marijuana today. She has been advised to quit smoking marijuana as this causes cyclical vomiting syndrome and she has always refused to accept that marijuana is the cause of her symptoms; however, her indicates that they have stopped smoking marijuana and the last use was approximately 2 weeks ago. She is complaining of abdominal pain and that she rates it about 10/10 and her symptoms worsen if she tries to eat and drink. She was extensively investigated in the Emergency Room and she was found to be hypokalemic with a serum potassium of 2.7 and was admitted to continue on IV fluid, to replenish the potassium and to treat her with antiemetic medication. PAST MEDICAL HISTORY: Significant for gastroesophageal reflux disease, anxiety, depression, bronchial asthma as well as cyclic vomiting syndrome and marijuana abuse. PAST SURGICAL HISTORY: Significant for mesenteric cyst removal from intestine in 2005. She also underwent exploratory laparotomy and adhesiolysis in 2010. She underwent an esophagogastroduodenoscopy and had had an appendectomy in 2005. ALLERGIES: She is allergic to NUVARING as well as TEA TREE OIL. FAMILY HISTORY: She has one older brother and one younger sister, both are healthy. Her sister lives with her. Her father at the age of 45 because of congestive heart failure. Mother at the age of 40 as she committed suicide. SOCIAL HISTORY: She is , has one daughter. She continued to smoke cigarettes and drinks alcohol occasionally. She claims that she quit smoking marijuana. MEDICATIONS: She is currently on following medications: She is on ondansetron ODT 8 mg 3 times a day, famotidine 20 mg twice a day, and multivitamin with mineral one tablet once a day. PHYSICAL EXAMINATION: GENERAL: On arrival to the Emergency Room, she looked well and was clearly in no apparent respiratory distress. No pallor, jaundice, cyanosis, or thyromegaly. No jugular venous distension. No lower limb edema. VITAL SIGNS: Her heart rate was 64, blood pressure 148/80, temperature was 99.1, respiratory rate was 18 and oxygen saturation was 96% on room air. HEAD, EYES, EARS, NOSE AND THROAT: Showed normocephalic, atraumatic. NECK: Supple. HEART: Showed normal first and second heart sounds. No gallop, rub or murmur. CHEST: Clear to auscultation. No crepitation or rhonchi. ABDOMEN: Scaphoid, soft, nontender. NEUROLOGIC: She was awake, alert, responding appropriately. All cranial nerves intact. EXTREMITIES: She moves extremities without difficulty. LABORATORY DATA: Showed a white cell count of 8500, hemoglobin 15.4, hematocrit 44, MCV 91, and platelet count of 177,000. Her serum sodium was 136, potassium 2.7, chloride 98, bicarbonate 28, anion gap of 10, BUN 12, creatinine 0.8, estimated GFR was 82 mL per minute. Her glucose was 80, calcium was 8.7. ASSESSMENT AND PLAN: In summary, this is a 33-year-old female patient who yet again came with another cyclic vomiting syndrome induced by cannabis abuse, hypokalemia, and dehydration. We will continue with IV fluid and replenish her potassium, antiemetic and pain management. Follow her labs closely. JULIETA LOZANO MD DR: YULISSA/etta JOB#: [id number] / [id number]
[2018-12-23] MEDS: METOCLOPRAMIDE HCL 10 MG/2 ML VIAL. IV PRN ×2 (14:41→21:02)
[2018-12-23 17:17] LABS: CALCIUM 8.6 mg/dL (8.5-10.1); CREATININE 0.6 mg/dL (0.6-1.0); GFR 114.4; POTASSIUM 3.3 mmol/L (3.5-5.1)
[2018-12-24] MEDS: ONDANSETRON PF 4 MG/2 ML VIAL. IV PRN ×3 (03:11→20:26)
[2018-12-24] MEDS: POTASSIUM CL 40MEQ IN 0.9%NACL 1,000 ML IV SCH ×3 (03:12→20:28)
[2018-12-24 04:34] VITALS: BP 143/90
[2018-12-24] MEDS: METOCLOPRAMIDE HCL 10 MG/2 ML VIAL. IV PRN ×2 (05:13→15:29)
[2018-12-24] MEDS: KETOROLAC 30 MG/ML VIAL. IV PRN ×3 (05:13→20:27)
[2018-12-24 06:48] LABS: HEMATOCRIT 41.9 % (36.0-47.0); RED BLOOD COUNT 4.66 x10^6/uL (3.50-5.40); RED CELL DISTRIBUTION WIDTH 13.1 % (11.5-14.5); WHITE BLOOD COUNT 9.1 x10^3/uL (4.0-11.0)
[2018-12-24 07:03] LABS: ALBUMIN 3.5 g/dL (3.4-5.0); ALBUMIN/GLOBULIN RATIO 1.1 (1.0-1.7); CALCIUM 8.6 mg/dL (8.5-10.1); CREATININE 0.6 mg/dL (0.6-1.0); GFR 114.4; POTASSIUM 3.4 mmol/L (3.5-5.1); TOTAL PROTEIN 6.6 g/dL (6.4-8.2)
[2018-12-24 11:01] VITALS: BP 154/76
[2018-12-24 14:02] LABS: AMORPHOUS SEDIMENT,UR PRESENT /HPF; BACTERIA,URINE FEW /HPF (0-FEW); BILIRUBIN,URINE NEG (NEG); CLARITY,URINE CLOUDY; COLOR,URINE YELLOW; GLUCOSE,URINE NEG (NEG); NITRITE,URINE NEG (NEG); SQUAMOUS EPITHELIAL CELL,UR FEW /LPF; UROBILINOGEN,URINE 2 mg/dL (0.2 mg/dL); WBC,URINE 0 /HPF (0-4)
[2018-12-24 15:42] VITALS: BP 131/76
--- NOTE | 2018-12-24 16:40 | PN ---
DATE: 12/24/2018 SUBJECTIVE: The patient continues to complain of abdominal pain, nausea and vomiting, although her lab work has definitely improved. Her potassium on arrival was only 2.7 and now it is 3.4. Did complain of urinary frequency, but denied any dysuria or hematuria. OBJECTIVE: GENERAL: On examining her, she looked well and was clearly in no apparent respiratory distress. No pallor, jaundice, cyanosis, or thyromegaly. No jugular venous distension. No lower limb edema. VITAL SIGNS: Her heart rate was 75, blood pressure 154/76, temperature was 98.1, respiratory rate was 18 and oxygen saturation was 95%. HEAD, EYES, EARS, NOSE AND THROAT: Showed normocephalic, atraumatic. NECK: Supple. HEART: Showed normal first and second heart sounds. No gallop, rub or murmur. CHEST: Clear to auscultation. No crepitation or rhonchi. ABDOMEN: Distended, soft, nontender. No guarding or rigidity. No organomegaly. All hernial orifice intact. Bowel sounds normal. NEUROLOGIC: She was awake, alert, responding appropriately. All cranial nerves intact. She moves extremities without difficulty. She ambulates without assistance or assistive devices. Her intake was 815, no output was recorded. LABORATORY DATA: As of this morning; her serum sodium was 133, potassium 3.4, chloride 99, bicarbonate was 22, anion gap of 12, BUN 7, creatinine 0.6, estimated GFR was 114 mL per minute. Her glucose was 77, calcium was 8.6. Total bilirubin, AST, ALT, alkaline phosphatase were normal. Her total protein was 6.6, albumin 3.5. White cell count was 9000, hemoglobin 15, hematocrit 42, MCV 90 and platelet count 267,000. ASSESSMENT: In summary, this is a 33-year-old female patient, who yet again coming with cannabis hyperemesis syndrome. She claims that she has not used any smoking marijuana for the last 2 weeks; however, her toxic screen was positive for that and the benzodiazepine. She has marked dehydration and hypokalemia that are resolving, did have slightly elevated lipase that has normalized. PLAN: To continue with IV fluid, antiemetics and IV Toradol. JULIETA LOZANO MD DR: YULISSA/etta JOB#: [id number] / [id number]
[2018-12-24 20:00] VITALS: BP 141/90
[2018-12-24 23:11] VITALS: BP 150/90
[2018-12-25] MEDS: METOCLOPRAMIDE HCL 10 MG/2 ML VIAL. IV PRN ×2 (00:31→12:05)
[2018-12-25] MEDS: KETOROLAC 30 MG/ML VIAL. IV PRN ×3 (02:37→15:10)
[2018-12-25] MEDS: ONDANSETRON PF 4 MG/2 ML VIAL. IV PRN ×3 (02:37→15:10)
[2018-12-25 05:40] VITALS: BP 146/89
[2018-12-25 06:15] LABS: CALCIUM 8.6 mg/dL (8.5-10.1); CREATININE 0.6 mg/dL (0.6-1.0); GFR 114.4; POTASSIUM 4.1 mmol/L (3.5-5.1)
[2018-12-25] MEDS: POTASSIUM CL 40MEQ IN 0.9%NACL 1,000 ML IV SCH ×2 (09:00→16:21)
[2018-12-25 11:41] VITALS: BP 156/87
[2018-12-25] MEDS ORDERED: IOHEXOL 240 MG/ML 50ML VIAL. ONE (12:54)
[2018-12-25] MEDS ORDERED: IOHEXOL 300 MG/ML 75 ML VIAL. IV ONE (13:45)
[2018-12-25 15:34] VITALS: BP 161/89
--- NOTE | 2018-12-25 15:34 | RAD ---
CT of the abdomen and pelvis with contrast 12/25/2018 3:16 PM Indication: Intractable abdominal pain Comparison study: CT of the abdomen and pelvis January 19, 2018, December 08, 2017 Technique: Multidetector CT imaging of the abdomen and pelvis was performed following the administration of IV contrast. Findings: The partially visualized lung bases demonstrate no acute abnormality. There is new ill-defined 1 cm hypodensity in the posterior right liver (segment 7, axial image 21). This is grossly unchanged from exam from Dec, 2017. The gallbladder, spleen, bilateral adrenal glands, bilateral kidneys, and pancreas, are grossly unremarkable. There is no bowel obstruction. No evidence of acute inflammatory change involving visualized bowel is identified. Appendix is not visualized. No evidence of right lower quadrant inflammatory changes seen. Bladder is grossly unremarkable. No free fluid or free air is seen in the abdomen or pelvis. No acute osseous changes are identified. Impression: 1. No evidence of acute intra-abdominal abnormality is identified. 2. Stable appearance of nonspecific, somewhat ill-defined 1 cm hypodensity in the posterior right liver since Dec, 2017. Consider further characterization with hepatic protocol MRI as clinically indicated. CT DOSING PQRS STATEMENT: One or more of the following individualized dose reduction techniques were utilized for this examination: 1. Automated exposure control 2. Adjustment of the mA and/or kV according to patient size 3. Use of iterative reconstruction technique Electronically signed by: Hong Cade MD (12/25/2018 3:31 PM) [id number]
--- NOTE | 2018-12-25 21:26 | PN ---
DATE: 12/25/2018 SUBJECTIVE: The patient continues to complain of nausea and vomiting. She has vomited all what she tried to eat last night, continued to be apprehensive about eating, although she tolerates water. She vomited the orange juice and they recommended that may be should try something nonacidic. Meanwhile, we will continue with the IV fluid and pain medication as well as antiemetic. PHYSICAL EXAMINATION: GENERAL: When I saw her this morning, she looked well and was clearly in no apparent respiratory distress. No pallor, jaundice, cyanosis or thyromegaly. No jugular venous distention. No lower limb edema. VITAL SIGNS: Her heart rate was 54. Her blood pressure was 156/87, temperature was 98.6, respiratory rate 20, and oxygen saturation was 100% on room air. HEAD, EYES, EARS, NOSE AND THROAT: Showed normocephalic, atraumatic. NECK: Supple. HEART: Showed normal first and second heart sounds with no gallop, rub or murmur. CHEST: Clear to auscultation. No crepitation or rhonchi. ABDOMEN: Scaphoid, soft, nontender. NEUROLOGIC: She was awake, alert, responding appropriately. All cranial nerves intact. She moves extremities without difficulty. She ambulates without assistance or assistive devices. Her intake over the last 24 hours was 2700, no output was recorded. LABORATORY DATA: As of this morning, her serum sodium is up to 134, potassium up to 4.1. Her chloride was 101, bicarbonate 23, anion gap of 10, BUN of 4, creatinine 0.6, estimated GFR was 114 mL per minute. Her glucose was 92, calcium was 8.6 and serum lipase was 177. Her white cell count was 9100, hemoglobin 15, hematocrit 42, MCV 90 and platelet count of 167,000. ASSESSMENT: This is a 33-year-old female patient who yet again admitted with cannabis hyperemesis syndrome with resultant severe dehydration, severe hypokalemia, both are resolving. Her lipase was initially slightly elevated, it has normalized. PLAN: To advance diet as tolerated. Continue with IV fluid, IV antiemetic and pain medication. JULIETA LOZANO MD DR: YULISSA/etta JOB#: [id number] / [id number]
== END 2018-12-25 19:45 | disposition home or self-care (01) | DRG 918 ==
LOC: ER 20:38 → 1 SOUTH 12-23 00:37
PROVIDERS: ADMIT Internal Medicine; ATTEND Internal Medicine
DX: T40.7X1A Poisoning by cannabis (derivatives), accidental (unintentional), initial encounter (principal); G43.A0 Cyclical vomiting, in migraine, not intractable; J45.909 Unspecified asthma, uncomplicated; F12.10 Cannabis abuse, uncomplicated; E87.6 Hypokalemia; E86.0 Dehydration; F17.210 Nicotine dependence, cigarettes, uncomplicated; K21.9 Gastro-esophageal reflux disease without esophagitis; Z82.49 Family history of ischemic heart disease and other diseases of the circulatory system; F32.9 Major depressive disorder, single episode, unspecified; F41.9 Anxiety disorder, unspecified; Z88.8 Allergy status to other drugs, medicaments and biological substances; Y92.89 Other specified places as the place of occurrence of the external cause
CPT/HCPCS: 36415; 74177; 80048; 80053; 80307; 81001; 83690; 85025; 85027; 96361; 96374; 96375; 96376; J1200; J1885; J2270; J2405; J2765; J3010; J3480; J3490; Q9967; 99285-25; J7030

== ENCOUNTER 2019-03-04 18:54 | Emergency (ER) | payer BC ==
[~2019-03-04] VITALS: Ht 157.5 cm; Wt 55.8 kg
[~2019-03-04 18:54] MED LIST changes: +OMEP20TA63 PO; +ONDA4TAB7 PO
[2019-03-04] MEDS ORDERED: IV RINGERS SOLUTION,LACTATED 1,000 ML IV SCH (19:03)
--- NOTE | 2019-03-04 19:10 | ED.ADGEN ---
Past History Past Medical History: No Pertinent History, Anxiety, Bipolar, Bronchitis, Depression, GERD, Cyclic Vomiting Past Medical History Hx. Polysubstance abuse Past Surgical History: Other Smoking: Cigarettes, Less than 1pk/day Alcohol Use: Occasionally Drug Use: Marijuana, Other Adult General Chief Complaint Chief Complaint ".. I ve been moving... and up two days without sleep.. I guess I just fell asleep at the [employer] [facility]... police woke me up.. .and I had some med bottles.. they said I could go to the hospital or penitentiary.. so I came here...".. " I just want to go home now..." HPI HPI Patient is a 33 year old female who presents with above hx and complaints syn cope or falling asleep in her car at the [employer]. Pt. found passed out in her car at [employer] by police during a citizen request to check her well being . Pt. admits to polysubstance abuse. Pt. denies any seizure or syncope. States she just fell asleep. Pt. has no reports of injury. Patient did have a mild elevation in temperature and had been in a closed car at the [employer]. Patient denies any history immunosuppression. Patient denies any history of travel. Patient denies any specific ill contacts. Patient states she does not currently follow up a primary care physician regularly. Review of Systems Review of Systems Constitutional: Denies fever or chills [] Eyes: Denies change in visual acuity, redness, or eye pain [] HENT: Denies nasal congestion or sore throat [] Respiratory: Denies cough or shortness of breath [] Cardiovascular: No additional information not addressed in HPI [] GI: Denies abdominal pain, nausea, vomiting, bloody stools or diarrhea [] : Denies dysuria or hematuria [] Musculoskeletal: Denies back pain or joint pain [] Integument: Denies rash or skin lesions [] Neurologic: Denies headache, focal weakness or sensory changes [] Endocrine: Denies polyuria or polydipsia [] All other systems were reviewed and found to be within normal limits, except as documented in this note. Family History Family History Noncontributory Current Medications Current Medications Current Medications Medications (Trade) Dose Ordered Sig/Jaycee Start Time Stop Time Status Last Admin Dose Admin Lactated Ringer's 1,000 ml @ 1,000 mls/hr Q1H 03/04/19 19:03 03/04/19 20:02 DC 03/04/19 19:50 1,000 MLS/HR Allergies Allergies Allergies Coded Allergies Type Severity Reaction Last Updated Verified tea tree Allergy Severe Rash 07/17/16 Yes ethinyl estradiol Adverse Reaction Intermediate Swelling 03/26/14 Yes etonogestrel Adverse Reaction Intermediate Swelling 03/26/14 Yes fluoxetine Adverse Reaction Intermediate 11/15/18 Yes Physical Exam Physical Exam Constitutional: , no acute distress, non-toxic appearance. [] HENT: Normocephalic, atraumatic, bilateral external ears normal, oropharynx dry, no oral exudates, nose normal. [] Eyes: PERRLA, EOMI, conjunctiva normal, no discharge. [] Neck: Normal range of motion, no tenderness, supple, no stridor. [] Cardiovascular:Heart rate regular rhythm, no murmur [] Lungs & Thorax: Bilateral breath sounds equal apex with scattered wheezes auscultation [] Abdomen: Bowel sounds normal, soft, no tenderness, no masses, no pulsatile masses. [] Skin: Warm, dry, no erythema, no rash. [] Tattoos. Poor turgor. Back: No tenderness, no CVA tenderness. [] Extremities: No tenderness, no cyanosis, no clubbing, ROM intact, no edema. [] Needle medrano Neurologic: Alert and oriented X 3, normal motor function, normal sensory function, no focal deficits noted. []DTRs are +2 patella and brachial. Senior Qa Analyst equal. Patient ambulatory Psychologic: Affect anxious, judgement normal, mood depressed. Denies suicidal or homicidal ideation Current Patient Data Vital Signs Vital Signs Date Time Temp Pulse Resp B/P (MAP) Pulse Ox O2 Delivery O2 Flow Rate FiO2 03/04/19 22:25 93 18 133/92 (106) 98 Room Air 03/04/19 19:00 98.6 Lab Results Laboratory Tests Test 03/04/19 19:04 03/04/19 19:35 Urine Collection Type Unknown Urine Color Yolette Urine Clarity Cloudy Urine pH 6.5 Urine Specific [place] 1.020 Urine Protein Neg (NEG-TRACE) Urine Glucose (UA) Neg mg/dL (NEG) Urine Ketones (Stick) Neg mg/dL (NEG) Urine Blood Neg (NEG) Urine Nitrite Neg (NEG) Urine Bilirubin Neg (NEG) Urine Urobilinogen Dipstick 0.2 mg/dL (0.2 mg/dL) Urine Leukocyte Esterase Neg (NEG) Urine RBC 0 /HPF (0-2) Urine WBC 0 /HPF (0-4) Urine Squamous Epithelial Cells Occ /LPF Urine Bacteria 0 /HPF (0-FEW) Urine Mucus Slight /LPF Urine Opiates Screen Pos (NEG) Urine Methadone Screen Neg (NEG) Urine Barbiturates Neg (NEG) Urine Phencyclidine Screen Neg (NEG) Urine Amphetamine/Methamphetamine Pos (NEG) Urine Benzodiazepines Screen Pos (NEG) Urine Cocaine Screen Neg (NEG) Urine Cannabinoids Screen Pos (NEG) Urine Ethyl Alcohol Neg (NEG) White Blood Count 11.4 x10^3/uL (4.0-11.0) H Red Blood Count 4.34 x10^6/uL (3.50-5.40) Hemoglobin 13.6 g/dL (12.0-15.5) Hematocrit 40.2 % (36.0-47.0) Mean Corpuscular Volume 93 fL (79-100) Mean Corpuscular Hemoglobin 31 pg (25-35) Mean Corpuscular Hemoglobin Concent 34 g/dL (31-37) Red Cell Distribution Width 13.3 % (11.5-14.5) Platelet Count 226 x10^3/uL (140-400) Neutrophils (%) (Auto) 69 % (31-73) Lymphocytes (%) (Auto) 24 % (24-48) Monocytes (%) (Auto) 6 % (0-9) Eosinophils (%) (Auto) 1 % (0-3) Basophils (%) (Auto) 0 % (0-3) Neutrophils # (Auto) 7.9 x10^3uL (1.8-7.7) H Lymphocytes # (Auto) 2.7 x10^3/uL (1.0-4.8) Monocytes # (Auto) 0.7 x10^3/uL (0.0-1.1) Eosinophils # (Auto) 0.1 x10^3/uL (0.0-0.7) Basophils # (Auto) 0.0 x10^3/uL (0.0-0.2) Erythrocyte Sedimentation Rate 39 (0-25) H Prothrombin Time 10.6 SEC (9.4-11.4) Prothrombin Time INR 1.0 (0.9-1.1) PTT 28 SEC (23-33) D-Dimer (Kika) 0.35 mg/L (0.00-0.50) Urine Test Negative (NEG) Sodium Level 144 mmol/L (136-145) Potassium Level 3.5 mmol/L (3.5-5.1) Chloride Level 106 mmol/L (98-107) Carbon Dioxide Level 28 mmol/L (21-32) Anion Gap 10 (6-14) Blood Urea Nitrogen 12 mg/dL (7-20) Creatinine 0.9 mg/dL (0.6-1.0) Estimated GFR (Cockcroft-Gault) 71.7 Glucose Level 84 mg/dL (70-99) Lactic Acid Level 1.0 mmol/L (0.4-2.0) Calcium Level 9.4 mg/dL (8.5-10.1) Magnesium Level 2.4 mg/dL (1.8-2.4) Total Bilirubin 0.3 mg/dL (0.2-1.0) Direct Bilirubin 0.1 mg/dL (0.0-0.2) Aspartate Amino Transferase (AST) 29 U/L (15-37) Alanine Aminotransferase (ALT) 30 U/L (14-59) Alkaline Phosphatase 83 U/L (46-116) Creatine Kinase 395 U/L (26-192) H Troponin I Quantitative < 0.017 ng/mL (0-0.055) NT-Xvn-Y-Type Natriuretic Peptide 251 pg/mL (0-124) H Total Protein 6.6 g/dL (6.4-8.2) Albumin 3.6 g/dL (3.4-5.0) Lipase 78 U/L (73-393) Ethyl Alcohol Level < 10 mg/dL (0-10) EKG EKG My interpretation EKG shows a sinus rhythm at 83 bpm. No findings acute STEMI of contralateral changes.[] Radiology/Procedures Radiology/Procedures Rotation of chest x-ray shows no acute cardio pulmonary findings. No free air in the diaphragm. No acute interval change on comparison to prior films. [][address] [address] IMAGING REPORT Signed PATIENT: JESSE WILSON ACCOUNT: [id number] : 1985 LOCATION: ER AGE: 33 SEX: F EXAM STATUS: REG ER ORD. PHYSICIAN: KHOA YUN MD REASON: Found unresponsive. Hx head injury PROCEDURE: CT HEAD WO CONTRAST CT Head W/O Contrast: History: Found unresponsive Comparison: none Axial images were obtained without contrast. The brownlee and white matter appears normal and symmetrical for the patients age. There is no mass effect, extraaxial fluid collections or hydrocephalus. There is no gross bleed. There is no focal loss of brownlee-white matter distinction to suggest acute ischemia, i.e. stroke. Impression: No acute findings. [facility] Compliance Statement: One or more of the following individualized dose reduction techniques were utilized for this examination: 1. Automated exposure control 2. Adjustment of the mA and/or kV according to patient size 3. Use of iterative reconstruction technique Electronically signed by: Madelaine Billy III, MD (03/04/2019 8:19 PM) [facility] DICTATED AND SIGNED BY: MADELAINE BILLY III, MD DATE: 03/04/192018 CC: KHOA YUN MD; PCP,NO ~ Course & Med Decision Making Course & Med Decision Making Pertinent Labs and Imaging studies reviewed. (See chart for details). Reviewed all labs and x-rays with pt. Pt. insistent on discharge. Exhibit UCAR capacit y . Return if any concerns. [] Final Impression Final Impression 1. Syncope versus falling asleep versus narcotic over dosage 2. Polysubstance Abuse ( Urine screen currently + MJ, Meth, Opiates) 3. History of cyclic vomiting admissions 12/23 and 11/15 of this year-secondary to excessive. Marijuana use 4. Mild elevation in sedimentation rate 39 5. Mild leukocytosis 11.4 6. Elevated CK 395 [] Dragon Disclaimer Dragon Disclaimer This electronic medical record was generated, in whole or in part, using a voice recognition dictation system. Discharge Summary Visit Information Final Diagnosis Problems Medical Problems: (1) Dehydration Status: Acute (2) Polysubstance abuse Status: Acute Brief Hospital Course Allergies Allergies Coded Allergies Type Severity Reaction Last Updated Verified tea tree Allergy Severe Rash 07/17/16 Yes ethinyl estradiol Adverse Reaction Intermediate Swelling 03/26/14 Yes etonogestrel Adverse Reaction Intermediate Swelling 03/26/14 Yes fluoxetine Adverse Reaction Intermediate 11/15/18 Yes Vital Signs Vital Signs Date Time Temp Pulse Resp B/P (MAP) Pulse Ox O2 Delivery O2 Flow Rate FiO2 03/04/19 22:25 93 18 133/92 (106) 98 Room Air 03/04/19 19:00 98.6 Lab Results Laboratory Tests Test 03/04/19 19:04 03/04/19 19:35 Urine Collection Type Unknown Urine Color Yolette Urine Clarity Cloudy Urine pH 6.5 Urine Specific [place] 1.020 Urine Protein Neg (NEG-TRACE) Urine Glucose (UA) Neg mg/dL (NEG) Urine Ketones (Stick) Neg mg/dL (NEG) Urine Blood Neg (NEG) Urine Nitrite Neg (NEG) Urine Bilirubin Neg (NEG) Urine Urobilinogen Dipstick 0.2 mg/dL (0.2 mg/dL) Urine Leukocyte Esterase Neg (NEG) Urine RBC 0 /HPF (0-2) Urine WBC 0 /HPF (0-4) Urine Squamous Epithelial Cells Occ /LPF Urine Bacteria 0 /HPF (0-FEW) Urine Mucus Slight /LPF Urine Opiates Screen Pos (NEG) Urine Methadone Screen Neg (NEG) Urine Barbiturates Neg (NEG) Urine Phencyclidine Screen Neg (NEG) Urine Amphetamine/Methamphetamine Pos (NEG) Urine Benzodiazepines Screen Pos (NEG) Urine Cocaine Screen Neg (NEG) Urine Cannabinoids Screen Pos (NEG) Urine Ethyl Alcohol Neg (NEG) White Blood Count 11.4 x10^3/uL (4.0-11.0) Red Blood Count 4.34 x10^6/uL (3.50-5.40) Hemoglobin 13.6 g/dL (12.0-15.5) Hematocrit 40.2 % (36.0-47.0) Mean Corpuscular Volume 93 fL (79-100) Mean Corpuscular Hemoglobin 31 pg (25-35) Mean Corpuscular Hemoglobin Concent 34 g/dL (31-37) Red Cell Distribution Width 13.3 % (11.5-14.5) Platelet Count 226 x10^3/uL (140-400) Neutrophils (%) (Auto) 69 % (31-73) Lymphocytes (%) (Auto) 24 % (24-48) Monocytes (%) (Auto) 6 % (0-9) Eosinophils (%) (Auto) 1 % (0-3) Basophils (%) (Auto) 0 % (0-3) Neutrophils # (Auto) 7.9 x10^3uL (1.8-7.7) Lymphocytes # (Auto) 2.7 x10^3/uL (1.0-4.8) Monocytes # (Auto) 0.7 x10^3/uL (0.0-1.1) Eosinophils # (Auto) 0.1 x10^3/uL (0.0-0.7) Basophils # (Auto) 0.0 x10^3/uL (0.0-0.2) Erythrocyte Sedimentation Rate 39 (0-25) Prothrombin Time 10.6 SEC (9.4-11.4) Prothromb Time International Ratio 1.0 (0.9-1.1) Activated Partial Thromboplast Time 28 SEC (23-33) D-Dimer (Kika) 0.35 mg/L (0.00-0.50) Urine Test Negative (NEG) Sodium Level 144 mmol/L (136-145) Potassium Level 3.5 mmol/L (3.5-5.1) Chloride Level 106 mmol/L (98-107) Carbon Dioxide Level 28 mmol/L (21-32) Anion Gap 10 (6-14) Blood Urea Nitrogen 12 mg/dL (7-20) Creatinine 0.9 mg/dL (0.6-1.0) Estimated GFR (Cockcroft-Gault) 71.7 Glucose Level 84 mg/dL (70-99) Lactic Acid Level 1.0 mmol/L (0.4-2.0) Calcium Level 9.4 mg/dL (8.5-10.1) Magnesium Level 2.4 mg/dL (1.8-2.4) Total Bilirubin 0.3 mg/dL (0.2-1.0) Direct Bilirubin 0.1 mg/dL (0.0-0.2) Aspartate Amino Transf (AST/SGOT) 29 U/L (15-37) Alanine Aminotransferase (ALT/SGPT) 30 U/L (14-59) Alkaline Phosphatase 83 U/L (46-116) Creatine Kinase 395 U/L (26-192) Troponin I Quantitative < 0.017 ng/mL (0-0.055) XJ-Drx-G-Type Natriuretic Peptide 251 pg/mL (0-124) Total Protein 6.6 g/dL (6.4-8.2) Albumin 3.6 g/dL (3.4-5.0) Lipase 78 U/L (73-393) Ethyl Alcohol Level < 10 mg/dL (0-10) Brief Hospital Course Ms. Wilson is a 33 old female who presented with hx of PD referral to ED after found asleep in her car at [employer]. Discharge Information Condition at Discharge: Improved Disposition/Orders: D/C to Home Dischare Medications Current Medications Lactated Ringer's 1,000 ml @ 1,000 mls/hr Q1H IV Last administered on 03/04/19at 19:50; Admin Dose 1,000 MLS/HR; Start 03/04/19 at 19:03; Stop 03/04/19 at 20:02; Status DC Active Scripts Active Reported Prilosec Otc (Omeprazole Magnesium) 20 Mg Tablet.dr 1 Tab PO DAILYBID PRN Zofran (Ondansetron Hcl) 4 Mg Tablet 1 Tab PO Q6HRS Hair, Skin & Nails (Multivitamin With Minerals) 1 Each Tablet 1 Each PO DAILY LAST DOSE GIVEN: DATE: TIME: NEXT DOSE DUE: DATE: TIME: Pepcid (Famotidine) 20 Mg Tablet 1 Tab PO BID LAST DOSE GIVEN: DATE: TIME: NEXT DOSE DUE: DATE: TIME: Ondansetron Odt (Ondansetron) 8 Mg Tab.rapdis 8 Mg PO TID PRN LAST DOSE GIVEN: DATE: TIME: NEXT DOSE DUE: DATE: TIME: Discharge Summary Visit Information Final Diagnosis Problems Medical Problems: (1) Dehydration Status: Acute (2) Polysubstance abuse Status: Acute Brief Hospital Course Allergies Allergies Coded Allergies Type Severity Reaction Last Updated Verified tea tree Allergy Severe Rash 07/17/16 Yes ethinyl estradiol Adverse Reaction Intermediate Swelling 03/26/14 Yes etonogestrel Adverse Reaction Intermediate Swelling 03/26/14 Yes fluoxetine Adverse Reaction Intermediate 11/15/18 Yes Vital Signs Vital Signs Date Time Temp Pulse Resp B/P (MAP) Pulse Ox O2 Delivery O2 Flow Rate FiO2 03/04/19 22:25 93 18 133/92 (106) 98 Room Air 03/04/19 19:00 98.6 Lab Results Laboratory Tests Test 03/04/19 19:04 03/04/19 19:35 Urine Collection Type Unknown Urine Color Yolette Urine Clarity Cloudy Urine pH 6.5 Urine Specific [place] 1.020 Urine Protein Neg (NEG-TRACE) Urine Glucose (UA) Neg mg/dL (NEG) Urine Ketones (Stick) Neg mg/dL (NEG) Urine Blood Neg (NEG) Urine Nitrite Neg (NEG) Urine Bilirubin Neg (NEG) Urine Urobilinogen Dipstick 0.2 mg/dL (0.2 mg/dL) Urine Leukocyte Esterase Neg (NEG) Urine RBC 0 /HPF (0-2) Urine WBC 0 /HPF (0-4) Urine Squamous Epithelial Cells Occ /LPF Urine Bacteria 0 /HPF (0-FEW) Urine Mucus Slight /LPF Urine Opiates Screen Pos (NEG) Urine Methadone Screen Neg (NEG) Urine Barbiturates Neg (NEG) Urine Phencyclidine Screen Neg (NEG) Urine Amphetamine/Methamphetamine Pos (NEG) Urine Benzodiazepines Screen Pos (NEG) Urine Cocaine Screen Neg (NEG) Urine Cannabinoids Screen Pos (NEG) Urine Ethyl Alcohol Neg (NEG) White Blood Count 11.4 x10^3/uL (4.0-11.0) Red Blood Count 4.34 x10^6/uL (3.50-5.40) Hemoglobin 13.6 g/dL (12.0-15.5) Hematocrit 40.2 % (36.0-47.0) Mean Corpuscular Volume 93 fL (79-100) Mean Corpuscular Hemoglobin 31 pg (25-35) Mean Corpuscular Hemoglobin Concent 34 g/dL (31-37) Red Cell Distribution Width 13.3 % (11.5-14.5) Platelet Count 226 x10^3/uL (140-400) Neutrophils (%) (Auto) 69 % (31-73) Lymphocytes (%) (Auto) 24 % (24-48) Monocytes (%) (Auto) 6 % (0-9) Eosinophils (%) (Auto) 1 % (0-3) Basophils (%) (Auto) 0 % (0-3) Neutrophils # (Auto) 7.9 x10^3uL (1.8-7.7) Lymphocytes # (Auto) 2.7 x10^3/uL (1.0-4.8) Monocytes # (Auto) 0.7 x10^3/uL (0.0-1.1) Eosinophils # (Auto) 0.1 x10^3/uL (0.0-0.7) Basophils # (Auto) 0.0 x10^3/uL (0.0-0.2) Erythrocyte Sedimentation Rate 39 (0-25) Prothrombin Time 10.6 SEC (9.4-11.4) Prothromb Time International Ratio 1.0 (0.9-1.1) Activated Partial Thromboplast Time 28 SEC (23-33) D-Dimer (Kika) 0.35 mg/L (0.00-0.50) Urine Test Negative (NEG) Sodium Level 144 mmol/L (136-145) Potassium Level 3.5 mmol/L (3.5-5.1) Chloride Level 106 mmol/L (98-107) Carbon Dioxide Level 28 mmol/L (21-32) Anion Gap 10 (6-14) Blood Urea Nitrogen 12 mg/dL (7-20) Creatinine 0.9 mg/dL (0.6-1.0) Estimated GFR (Cockcroft-Gault) 71.7 Glucose Level 84 mg/dL (70-99) Lactic Acid Level 1.0 mmol/L (0.4-2.0) Calcium Level 9.4 mg/dL (8.5-10.1) Magnesium Level 2.4 mg/dL (1.8-2.4) Total Bilirubin 0.3 mg/dL (0.2-1.0) Direct Bilirubin 0.1 mg/dL (0.0-0.2) Aspartate Amino Transf (AST/SGOT) 29 U/L (15-37) Alanine Aminotransferase (ALT/SGPT) 30 U/L (14-59) Alkaline Phosphatase 83 U/L (46-116) Creatine Kinase 395 U/L (26-192) Troponin I Quantitative < 0.017 ng/mL (0-0.055) KS-Voj-W-Type Natriuretic Peptide 251 pg/mL (0-124) Total Protein 6.6 g/dL (6.4-8.2) Albumin 3.6 g/dL (3.4-5.0) Lipase 78 U/L (73-393) Ethyl Alcohol Level < 10 mg/dL (0-10) Brief Hospital Course Ms. Wilson is a 33 old female who presented with possible syncope, vs falling asleep vs narcotic over dose- [place] closed [place] gas station. Discharge Information Condition at Discharge: Improved, Stable Disposition/Orders: D/C to Home Dischare Medications Current Medications Lactated Ringer's 1,000 ml @ 1,000 mls/hr Q1H IV Last administered on 03/04/19at 19:50; Admin Dose 1,000 MLS/HR; Start 03/04/19 at 19:03; Stop 03/04/19 at 20:02; Status DC Active Scripts Active Reported Prilosec Otc (Omeprazole Magnesium) 20 Mg Tablet.dr 1 Tab PO DAILYBID PRN Zofran (Ondansetron Hcl) 4 Mg Tablet 1 Tab PO Q6HRS Hair, Skin & Nails (Multivitamin With Minerals) 1 Each Tablet 1 Each PO DAILY LAST DOSE GIVEN: DATE: TIME: NEXT DOSE DUE: DATE: TIME: Pepcid (Famotidine) 20 Mg Tablet 1 Tab PO BID LAST DOSE GIVEN: DATE: TIME: NEXT DOSE DUE: DATE: TIME: Ondansetron Odt (Ondansetron) 8 Mg Tab.rapdis 8 Mg PO TID PRN LAST DOSE GIVEN: DATE: TIME: NEXT DOSE DUE: DATE: TIME: Dragon Disclaimer This chart was dictated in whole or in part using Voice Recognition software in a busy, high-work load, and often noisy Emergency Department environment. It may contain unintended and wholly unrecognized errors or omissions. Dragon Disclaimer This chart was dictated in whole or in part using Voice Recognition software in a busy, high-work load, and often noisy Emergency Department environment. It may contain unintended and wholly unrecognized errors or omissions. KHOA YUN MD Mar 04, 2019 19:10
[2019-03-04 19:58] LABS: BASO % 0 % (0-3); EOS # 0.1 x10^3/uL (0.0-0.7); EOS % 1 % (0-3); HEMATOCRIT 40.2 % (36.0-47.0); HEMOGLOBIN 13.6 g/dL (12.0-15.5); LYMPH # 2.7 x10^3/uL (1.0-4.8); LYMPH % 24 % (24-48); MEAN CORPUSCULAR HEMOGLOBIN 31 pg (25-35); MEAN CORPUSCULAR HGB CONC 34 g/dL (31-37); MEAN CORPUSCULAR VOLUME 93 fL (79-100); MONO # 0.7 x10^3/uL (0.0-1.1); MONO % 6 % (0-9); NEUT # 7.9 x10^3uL (1.8-7.7); NEUT % 69 % (31-73); PLATELET COUNT 226 x10^3/uL (140-400); RED BLOOD COUNT 4.34 x10^6/uL (3.50-5.40); RED CELL DISTRIBUTION WIDTH 13.3 % (11.5-14.5); WHITE BLOOD COUNT 11.4 x10^3/uL (4.0-11.0)
[2019-03-04 20:07] LABS: BARBITURATES NEG (NEG); BENZODIAZEPINES POS (NEG); CANNABINOIDS POS (NEG); COCAINE NEG (NEG); METHADONE NEG (NEG); OPIATES POS (NEG); PHENCYCLIDINE NEG (NEG)
[2019-03-04 20:08] LABS: AMPHETAMINE/METHAMPHETAMINE POS (NEG)
[2019-03-04 20:17] LABS: BILIRUBIN,URINE NEG (NEG); CLARITY,URINE CLOUDY; COLOR,URINE AMBER; GLUCOSE,URINE NEG (NEG)
[2019-03-04 20:18] LABS: BACTERIA,URINE 0 /HPF (0-FEW); NITRITE,URINE NEG (NEG); RBC,URINE 0 /HPF (0-2); SQUAMOUS EPITHELIAL CELL,UR OCC /LPF; UROBILINOGEN,URINE 0.2 mg/dL (0.2 mg/dL); WBC,URINE 0 /HPF (0-4)
[2019-03-04 20:19] LABS: U PREG PATIENT NEGATIVE (NEG)
--- NOTE | 2019-03-04 20:23 | RAD ---
CT Head W/O Contrast: History: Found unresponsive Comparison: none Axial images were obtained without contrast. The brownlee and white matter appears normal and symmetrical for the patients age. There is no mass effect, extraaxial fluid collections or hydrocephalus. There is no gross bleed. There is no focal loss of brownlee-white matter distinction to suggest acute ischemia, i.e. stroke. Impression: No acute findings. [facility] Compliance Statement: One or more of the following individualized dose reduction techniques were utilized for this examination: 1. Automated exposure control 2. Adjustment of the mA and/or kV according to patient size 3. Use of iterative reconstruction technique Electronically signed by: Hernando Felix III, MD (03/04/2019 8:19 PM) [facility]
[2019-03-04 20:30] LABS: ALBUMIN 3.6 g/dL (3.4-5.0); CALCIUM 9.4 mg/dL (8.5-10.1); CREATININE 0.9 mg/dL (0.6-1.0); DIRECT BILIRUBIN 0.1 mg/dL (0.0-0.2); GFR 71.7; MAGNESIUM 2.4 mg/dL (1.8-2.4); POTASSIUM 3.5 mmol/L (3.5-5.1); TOTAL BILIRUBIN 0.3 mg/dL (0.2-1.0); TOTAL PROTEIN 6.6 g/dL (6.4-8.2)
[2019-03-04 21:10] LABS: SEDIMENTATION RATE 39 (0-25)
[2019-03-04 22:25] VITALS: BP 133/92
--- NOTE | 2019-03-05 06:26 | EKG ---
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
--- NOTE | 2019-03-05 08:18 | RAD ---
EXAM: CHEST 1 VIEW History: Found unresponsive COMPARISON: None available. TECHNIQUE: Single portable radiograph of the chest FINDINGS: The cardiac silhouette is unremarkable. The lungs are clear bilaterally. The costophrenic sulci are clear and well demarcated. IMPRESSION: No radiographic evidence of an acute cardiopulmonary process. Electronically signed by: Alfred Pak MD (03/05/2019 8:15 AM) [id number]
== END 2019-03-04 22:25 | disposition home or self-care (01) ==
LOC: ER 18:54
DX: E86.0 Dehydration (principal); F19.10 Other psychoactive substance abuse, uncomplicated; F15.10 Other stimulant abuse, uncomplicated; F12.10 Cannabis abuse, uncomplicated; F14.10 Cocaine abuse, uncomplicated; F11.10 Opioid abuse, uncomplicated; R70.0 Elevated erythrocyte sedimentation rate; D72.829 Elevated white blood cell count, unspecified; R74.8 Abnormal levels of other serum enzymes; F41.9 Anxiety disorder, unspecified; F31.9 Bipolar disorder, unspecified; K21.9 Gastro-esophageal reflux disease without esophagitis; F17.210 Nicotine dependence, cigarettes, uncomplicated; Z88.8 Allergy status to other drugs, medicaments and biological substances; Z91.048 Other nonmedicinal substance allergy status
CPT/HCPCS: 36415; 70450; 71045; 80048; 80076; 80307; 81001; 81025; 82550; 83605; 83690; 83735; 83880; 84443; 84484; 85025; 85379; 85610; 85651; 85730; 87040; 93005; 96360; 96361; 99285; G0480; J7120